=== PATIENT | male | born 1970 | race American Indian/Alaskan Native ===

== ENCOUNTER 2020-08-11 08:13 | Inpatient (IN) | payer OTHER ==
[2020-08-11] MEDS ORDERED: CLOPIDOGREL 300 MG TAB PO ONE (08:20)
[2020-08-11] MEDS ORDERED: ONDANSETRON 4 MG/2 ML INJ IV ONE (08:22)
[2020-08-11] MEDS ORDERED: SODIUM CHLORIDE 0.9% 500 ML 500 ML IV ONE (08:22)
[2020-08-11] MEDS ORDERED: MORPHINE 4 MG/1 ML INJ IV ONE (08:22)
[2020-08-11] MEDS ORDERED: NITROGLYCERIN 0.4 MG TAB SUBL SL PRN (08:22)
--- NOTE | 2020-08-11 08:24 | Emergency Department Report ---
ED Chest Pain HPI - General Chief Complaint: Chest Pain Stated Complaint: my chest hurts PUI?: No Time Seen by Provider: 08/11/20 08:19 Source: patient, EMS (Verbal report received from emergency medical services. EMS documentation not available at time of chart dictation ), RN notes reviewed Mode of arrival: Stretcher Limitations: No Limitations - History of Present Illness Initial Comments: The patient was evaluated in the emergency department for symptoms described in the history of present illness. He/she was evaluated in the context of the global COVID-19 pandemic, which necessitated consideration that the patient m ight be at risk for infection with the virus that causes COVID-19. Institutional protocols and algorithms that pertain to the evaluation of patients at risk for COVID-19 are in a state of rapid change based on information released by regulatory bodies including the CDC and federal and state organizations. These policies and algorithms were followed during the patient's care in the emergency department. Please note that these policies, procedures and recommendations changed on a rapid basis. This is a 49-year-old gentleman. Past medical history includes obesity and diabetes. The patient is brought to the hospital via EMS with a complaint of chest pain. Chest pain is central. There is mild nausea, shortness of breath and diaphoresis. The patient tells me the pain does not radiate anywhere. The patient denies Covid symptomatology. EMS gave the patient aspirin in the field. Prehospital EKG transmitted, nonspecific, though not morphologically consistent with STEMI. ER EKG confirmed a STEMI. EKG was transmitted to our a p mechanic, Dr. Zavaleta, who requested patient be transported to the [facility] for presumed STEMI. Request 600 mg of Plavix. Recommends heparin not necessary. Emergent x-ray of the chest was obtained to exclude widened mediastinum, aortic pathology, pneumothorax. Patient denies DVT and pulmonary embolism risk factors, hematemesis of bright red blood per rectum, and recent phosphodiesterase medication/erectile dysfunction medication utilization. MD Complaint: chest pain -: Gradual, hour(s) Pain Location: substernal Severity: severe Quality: aching Consistency: constant Improves With: nothing Worsens With: nothing re: nausea, dyspnea Treatments Prior to Arrival: aspirin Aspirin use within the Past 7 Days: (0) No - Related Data On Oral Contraceptives: No Home Medications Medication Instructions Recorded Confirmed Last Taken metFORMIN [Glucophage] 500 mg PO BID 08/11/20 08/11/20 08/10/20 15:00 500 mg Allergies Allergy/AdvReac Type Severity Reaction Status Date / Time No Known Allergies Allergy Unverified 08/11/20 08:38 Heart Score - HEART Score History: Highly suspicious EKG: Significant ST-depression (er ekg consistent with septal stemi) Age: 45-65 Risk factors: > 3 risk factors or hx of atherosclerotic disease Troponin: < normal limit HEART Score: 7 - EKG Read Time Time EKG Completed: 08:16 EKG Read Time: 08:16 - Critical Actions Critical Actions: >7 pts:50-65% risk of adverse cardiac event. Early invasive measures ED Review of Systems ROS: Stated complaint: CHESTPAIN Other details as noted in HPI Constitutional: malaise, weakness. denies: fever Eyes: denies: eye discharge ENT: denies: epistaxis Respiratory: shortness of breath. denies: cough Cardiovascular: chest pain Gastrointestinal: denies: hematemesis, melena Genitourinary: denies: frequency Musculoskeletal: denies: myalgia Neurological: weakness Psychiatric: anxiety Hematological/Lymphatic: denies: easy bleeding ED Past Medical Hx - Medications Home Medications: Home Medications Medication Instructions Recorded Confirmed Last Taken Type metFORMIN [Glucophage] 500 mg PO BID 08/11/20 08/11/20 08/10/20 15:00 History 500 mg ED Physical Exam - General Limitations: No Limitations General appearance: alert, in distress, obese - Head Head exam: Present: atraumatic, normocephalic - Eye Eye exam: Present: normal appearance, EOMI. Absent: nystagmus - ENT ENT exam: Present: normal exam, normal orophraynx, mucous membranes moist, normal external ear exam - Neck Neck exam: Present: normal inspection, full ROM. Absent: tenderness, meni ngismus - Respiratory Respiratory exam: Present: normal lung sounds bilaterally. Absent: respiratory distress, wheezes, rales, rhonchi, stridor, decreased breath sounds - Cardiovascular Cardiovascular Exam: Present: regular rate, normal rhythm, normal heart sounds. Absent: bradycardia, tachycardia, irregular rhythm, systolic murmur, diastolic murmur, rubs, gallop - GI/Abdominal GI/Abdominal exam: Present: soft. Absent: distended, tenderness, guarding, rebound, rigid, pulsatile mass - Rectal Rectal exam: Present: deferred - Extremities Exam Extremities exam: Present: normal inspection, full ROM, other (2+ pulses noted in the bilateral upper and lower extremities. There is no palpable cord. n egative Homans sign. Muscular compartments are soft. The pelvis is stable.). Absent: pedal edema, calf tenderness - Back Exam Back exam: Present: normal inspection, full ROM. Absent: tenderness, CVA tenderness (R), CVA tenderness (L), paraspinal tenderness, vertebral tenderness - Neurological Exam Neurological exam: Present: alert, other (No facial droop. Tongue midline. Extraocular movements intact bilaterally. Facial sensation intact to light touch in V1, V2, V3 distribution bilaterally. 5 and a 5 strength in 4 extremities. Sensation intact to light touch in 4 extremities.). Absent: motor sensory deficit - Psychiatric Psychiatric exam: Present: anxious - Skin Skin exam: Present: warm, dry, intact, normal color. Absent: rash ED Course Vital Signs 08/11/20 08/11/20 08/11/20 08:32 08:34 12:00 Temperature 98.2 F 98 F 98.7 F Pulse Rate 96 H 88 Respiratory 18 20 Rate Blood Pressure Blood Pressure 148/96 156/89 [Right] O2 Sat by Pulse 99 97 Oximetry 08/11/20 08/11/20 12:05 12:06 Temperature Pulse Rate 93 H 93 H Respiratory Rate Blood Pressure 156/100 156/100 Blood Pressure [Right] O2 Sat by Pulse Oximetry - Reevaluation(s) Reevaluation #1: 08/11/20 10:19 Differential diagnosis, including but not limited to: Acute coronary syndrome, pericarditis, myocarditis, aortic dissection, pneumothorax Assessment and plan: 49-year-old gentleman, without DVT or pulmonary embolism risk factors, who is low risk by Wells criteria for pulmonary embolism, who is PERC negative, with ER EKG which is morphologically concerning for STEMI. He was given aspirin in the field, cardiology has recommended Plavix load in the ER, and recommended that we do not start heparin in the ER, therefore, I have not ordered heparin. Patient required emergent acquisition of chest x-ray to exclude pneumothorax, mediastinal widening, and signs of aortic pathology. He has equal pulses in the upper and lower extremities, and x-ray of the chest was not suggestive of alternative diagnoses. He went to the cardiac catheterization lab for presumed STEMI, and his laboratory studies did not result until after he was admitted. His laboratory studies have subsequently demonstrated hypokalemia, mild anion gap acidosis, and hyperglycemia. Because the patient is currently recovering from his STEMI, and is currently under the care of the inpatient medical team, I am not able to manage his electrolyte, metabolic and glycemic derangements. I will defer to the inpatient team to further manage these. Dr Hernandez to admit to the ICU She indicated she will follow up on the patient's electrolyte and metabolic derangements. 08/11/20 10:22 08/11/20 10:23 08/11/20 10:25 - Consultations Consultation #1: 08/11/20 10:[address] Ramirez aware and will follow SANDI score - Sandi Score Age > 65: (0) No Aspirin use within the Past 7 Days: (0) No 3 or more CAD Risk Factors: (1) Yes 2 or more Angina events in past 24 hrs: (1) Yes Known CAD with more than 50% Stenosis: (1) Yes Elevated Cardiac Markers: (0) No ST Deviation Greater than 0.5mm: (1) Yes SANDI Score: 4 ED Medical Decision Making - Lab Data Result diagrams: 08/11/20 08:50 08/11/20 14:32 Vital Signs 08/11/20 08/11/20 08:32 08:34 Temperature 98.2 F 98 F Pulse Rate 96 H 88 Respiratory 18 20 Rate Blood Pressure 148/96 156/89 [Right] O2 Sat by Pulse 99 97 Oximetry - EKG Data -: EKG Interpreted by Me EKG shows normal: sinus rhythm - EKG Data When compared to previous EKG there are: previous EKG unavailable Interpretation: acute NC 08/11/20 08:30 EKG interpreted at 8: 16 Sinus rhythm, 98 bpm. First-degree AV block, left axis deviation, borderline left anterior fascicular block, ST elevation myocardial infarction, V2 V3 criteria. - Radiology Data Radiology results: pending, image reviewed interpreted by me: 1 view x-ray of the chest, interpreted by myself, negative for acute findings Critical Care Time: Yes Critical care time in (mins) excluding proc time.: 35 Critical care attestation.: If time is entered above; I have spent that time in minutes in the direct care of this critically ill patient, excluding procedure time. ED Disposition Clinical Impression: Hyperglycemia, Hypokalemia, Metabolic acidosis ST elevation (STEMI) myocardial infarction Qualifiers: Involved coronary artery: LAD coronary artery Qualified Code(s): I21.02 - ST elevation (STEMI) myocardial infarction involving left anterior descending coronary artery Disposition: -09 OP ADMIT IP TO THIS HOSP Condition: Critical
[2020-08-11] MEDS ORDERED: HEPARIN/NS 5000 UNIT/500ML 1,000 ML IR ONE (08:25)
[2020-08-11] MEDS ORDERED: VERAPAMIL 5 MG/2 ML INJ ONE (08:26)
[2020-08-11] MEDS ORDERED: fentaNYL 100 MCG/2 ML INJ ONE (08:26)
[2020-08-11] MEDS ORDERED: LIDOCAINE (2%) 20 MG/1 ML VIAL 20 ML MDV INFILTRATI ONE (08:26)
[2020-08-11] MEDS ORDERED: MIDAZOLAM 2 MG/2 ML INJ ONE (08:26)
[2020-08-11] MEDS ORDERED: SODIUM CHLORIDE 0.9% 500 ML 500 ML ONE (08:28)
[2020-08-11] MEDS ORDERED: NITROGLYCERIN SYRINGE 3 ML ONE (08:28)
[2020-08-11] MEDS ORDERED: ATROPINE 0.1% (1 MG/10 ML) CARDIAC SYRINGE ONE (08:37)
[2020-08-11] MEDS ORDERED: LIDOCAINE PF 100 MG/5 ML (CARDIAC SYRINGE) IV ONE (08:37)
[2020-08-11] MEDS ORDERED: EPINEPHrine 1 MG/10 ML SYRINGE ONE (08:37)
[2020-08-11] MEDS ORDERED: PHENYLEPHRINE/NS 1,000 MCG/10 ML SYRINGE (OR USE) IV ONE (08:38)
--- NOTE | 2020-08-11 08:44 | XRay Report ---
CHEST 1 VIEW INDICATION: chest pain. COMPARISON: None FINDINGS: Support devices: None. Heart: Within normal limits. Lungs/Pleura: No acute air space or interstitial disease. Additional findings: None. IMPRESSION: No acute findings. Signer Name: Ty Salazar Jr, MD Signed: 08/11/2020 8:39 AM Workstation Name: [id number]
[2020-08-11] MEDS: HEPARIN 10,000 UNITS/10 ML VIAL ONE ×2 (08:47→08:49)
[2020-08-11 08:58] LABS: Basophils # (Auto) 0.1 K/mm3 (0.0-0.1); Basophils % (Auto) 0.8 % (0.0-1.8); Eosinophils # (Auto) 0.1 K/mm3 (0.0-0.4); Eosinophils % (Auto) 0.4 % (0.0-4.3); Hematocrit 39.4 % (35.5-45.6); Hemoglobin 13.9 gm/dl (11.8-15.2); Lymphocytes # (Auto) 3.8 K/mm3 (1.2-5.4); Mean Corpuscular HGB Conc 35 % (32-34); Mean Corpuscular Volume 85 fl (84-94); Monocytes # (Auto) 0.4 K/mm3 (0.0-0.8); Monocytes % (Auto) 3.3 % (0.0-7.3); Platelet Count 300 K/mm3 (140-440); Red Blood Count 4.63 M/mm3 (3.65-5.03); Red Cell Distribution Width 13.1 % (13.2-15.2)
[2020-08-11] MEDS ORDERED: ASPIRIN 325 MG TAB ONE (09:06)
[2020-08-11 09:14] LABS: Creatine Kinase MB 3.8 ng/mL (0.0-4.0)
[2020-08-11 09:15] LABS: Alanine Aminotransferase 18 units/L (7-56); Albumin 4.2 g/dL (3.9-5); BUN/Creatinine Ratio 16; Blood Urea Nitrogen 21 mg/dL (9-20); Calcium 9.4 mg/dL (8.4-10.2); Hemolysis Index 5
[2020-08-11 09:16] LABS: INR 1.03 (0.87-1.13); Partial Thromboplastin Time 25.8 Sec. (24.2-36.6)
--- NOTE | 2020-08-11 09:51 | Consultation ---
History of Present Illness Consult date: 08/11/20 Requesting physician: MICHAEL OZUNA Consult reason: chest pain History of present illness: 49-year-old male morbid obesity diabetes having chest pain yesterday midsternal nonradiating nausea and some mild shortness of breath relieved. Came again this morning called ambulance showed acute anterior lateral NC brought emergently to [facility]. Left heart cath revealed left main patent LAD proximal 100% circumflex dominant patent obtuse marginal 1 2 patent L PDA patent large patent RCA small nondominant patent mild dysfunction. Successful PCI of the proximal LAD with a drug-eluting 5.0 x 22 mm stent. Chest pain has markedly improved. Patient states prior to this sedentary. No recent fever chills palpitations or syncope Past History Past Medical History: diabetes, hypertension Past Surgical History: No surgical history Social history: no significant social history Family history: no significant family history Medications and Allergies Allergies Allergy/AdvReac Type Severity Reaction Status Date / Time No Known Allergies Allergy Unverified 08/11/20 08:38 Active Meds: Active Medications Hydrocodone Bitart/Acetaminophen (Hydrocodone/Acetaminophen 5-325 Mg Tab) 1 each PO Q6H PRN PRN Reason: Pain, Moderate (4-6) Aspirin (Aspirin 81 Mg Tab Chew) 81 mg PO QDAY ARLEEN Atorvastatin Calcium (Atorvastatin 40 Mg Tab) 80 mg PO QHS ARLEEN Clopidogrel Bisulfate (Clopidogrel 75 Mg Tab) 75 mg PO QDAY ARLEEN Sodium Chloride (Nacl 0.9% 1000 Ml) 1,000 mls @ 75 mls/hr IV DIRECT ARLEEN Stop: 08/11/20 23:19 Lisinopril (Lisinopril 5 Mg Tab) 2.5 mg PO QDAY ARLEEN Metoprolol Tartrate (Metoprolol Tartrate 50 Mg Tab) 50 mg PO BID ARLEEN Nitroglycerin (Nitroglycerin 0.4 Mg Tab Subl) 0.4 mg SL .Q5MIN PRN PRN Reason: Chest Pain Review of Systems All systems: negative (As per the HPI) Physical Examination Vital Signs Temp Pulse Resp BP Pulse Ox 98.2 F 96 H 18 148/96 99 08/11/20 08:32 08/11/20 08:32 08/11/20 08:32 08/11/20 08:32 08/11/20 08:32 General appearance: no acute distress, well-nourished HEENT: Positive: PERRL, Mucus Membranes Moist Neck: Positive: neck supple, trachea midline Cardiac: Positive: Reg Rate and Rhythm, S1/S2, S3, Audible Murmur Lungs: Positive: clear to auscultation, Normal Breath Sounds Neuro: Positive: Grossly Intact Abdomen: Positive: Soft, Active Bowel Sounds. Negative: Tender, Distended Male genitourinary: Positive: normal Skin: Positive: Clear Incision: Cardiac Cath Site (No hematoma) Musculoskeletal: No Pain, Normal Range of Motion Extremities: Present: normal. Absent: edema Results 08/11/20 08:50 08/11/20 08:50 Cardiac Enzymes 08/11/20 Range/Units 08:50 AST 14 (5-40) units/L CK-MB (CK-2) 3.8 (0.0-4.0) ng/mL Coagulation 08/11/20 Range/Units 08:50 PT 13.4 (12.2-14.9) Sec. INR 1.03 (0.87-1.13) APTT 25.8 (24.2-36.6) Sec. CBC 08/11/20 Range/Units 08:50 WBC 12.4 H (4.5-11.0) K/mm3 RBC 4.63 (3.65-5.03) M/mm3 Hgb 13.9 (11.8-15.2) gm/dl Hct 39.4 (35.5-45.6) % Plt Count 300 (140-440) K/mm3 Lymph # (Auto) 3.8 (1.2-5.4) K/mm3 [place]vier # (Auto) 0.4 (0.0-0.8) K/mm3 Eos # (Auto) 0.1 (0.0-0.4) K/mm3 Baso # (Auto) 0.1 (0.0-0.1) K/mm3 Comprehensive Metabolic Panel 08/11/20 Range/Units 08:50 Sodium 131 L (137-145) mmol/L Potassium 3.4 L (3.6-5.0) mmol/L Chloride 95.0 L (98-107) mmol/L Carbon Dioxide 17 L (22-30) mmol/L BUN 21 H (9-20) mg/dL Creatinine 1.3 (0.8-1.3) mg/dL Glucose 530 H* (75-100) mg/dL Calcium 9.4 (8.4-10.2) mg/dL AST 14 (5-40) units/L ALT 18 (7-56) units/L Alkaline Phosphatase 85 (35-129) units/L Total Protein 8.0 (6.3-8.2) g/dL Albumin 4.2 (3.9-5) g/dL - Imaging and Cardiology Cardiac cath: report reviewed (08/11/20 Left heart cath revealed left main patent LAD proximal 100% circumflex dominant patent obtuse marginal 1 2 patent L PDA patent large patent RCA small nondominant patent mild dysfunction. Successful PCI of the proximal LAD with a drug-eluting 5.0 x 22 mm stent.) EKG interpretations - Telemetry EKG Rhythm: Sinus Rhythm (Sinus rhythm acute anterior lateral NC) Assessment and Plan 49-year-old male with acute anterolateral NC successful PCI of the proximal LAD patient will be on aspirin Plavix high-dose statin low-dose LUCAS and beta- ezequiel. Post PCI care discussed with patient patient's family. Echo postprocedure. Post radial care - Patient Problems (1) Acute diastolic (congestive) heart failure Current Visit: Yes Status: Acute (2) Hypertension Current Visit: Yes Status: Chronic Qualifiers: Hypertension type: essential hypertension Qualified Code(s): I10 - Essential (primary) hypertension (3) Diabetes mellitus Current Visit: Yes Status: Chronic Qualifiers: Diabetes mellitus type: type 2 Diabetes mellitus complication status: with circulatory complication Diabetes mellitus complication detail: with other circulatory complications (4) Hyperlipidemia Current Visit: Yes Status: Chronic Qualifiers: Hyperlipidemia type: moderate mixed hyperlipidemia not requiring statin therapy Qualified Code(s): E78.2 - Mixed hyperlipidemia (5) Morbid obesity with BMI of 40.0-44.9, adult Current Visit: Yes Status: Chronic (6) ST elevation (STEMI) myocardial infarction Current Visit: Yes Status: Acute Qualifiers: Involved coronary artery: LAD coronary artery Qualified Code(s): I21.02 - ST elevation (STEMI) myocardial infarction involving left anterior descending coronary artery
[2020-08-11] MEDS ORDERED: LISINOPRIL 5 MG TAB PO SCH (10:00)
[2020-08-11] MEDS ORDERED: SODIUM CHLORIDE 0.9% 1000 ML 1,000 ML IV SCH ×2 (10:00→11:00)
[2020-08-11] MEDS ORDERED: HYDROcodone/ACETAMINOPHEN 5-325 MG TAB PO PRN (10:00)
[2020-08-11] MEDS ORDERED: DEXTROSE 50% IN WATER (25GM) 50 ML SYRINGE IV PRN (10:07)
--- NOTE | 2020-08-11 10:27 | History and Physical Report ---
History of Present Illness Date of examination: 08/11/20 Date of admission: 08/11/20 08:27 Chief complaint: Chest pain History of present illness: This is a 49-year-old male with a history of obesity diabetes on oral hypoglycemic Metformin presented to the ER with complaints of having chest pain since yesterday. Patient described his chest pain midsternal nonradiating nausea and associated with some mild shortness of breath. Patient was brought to the ER by ambulance and showed acute anterior lateral MO on EKG. Code STEMI initiated and patient was taken emergently to [facility]. Left heart cath revealed left main patent LAD proximal 100% circumflex dominant patent obtuse marginal 1 2 patent L PDA patent large patent RCA small nondominant patent mild dysf unction. Successful PCI of the proximal LAD with a drug-eluting 5.0 x 22 mm stent. Chest pain has markedly improved following cardiac cath. Serum chemistry also significant for blood glucose greater than 500. Patient now admitted to intensive care unit for further evaluation and management. Review of System: Constitutional: no fever, no chills, no weight loss Ears, eyes, nose, mouth and throat: no nasal congestion, no nasal discharge, no sinus pressure, no vision change, no red eye. Neck: No neck pain or rigidity. Cardiovascular: +chest pain, no orthopnea, no palpitations, no leg swelling Respiratory: No shortness of breath, no cough, no congestion, no wheezing Gastrointestinal: no abdominal pain, no nausea, no vomiting Genitourinary : no dysuria, no hematuria Musculoskeletal: no joint swelling or muscle ache Integumentary: no rash, no pruritis Neurological: no parathesias, no numbness, no tingling Endocrine: no cold or heat intolerance, no polyuria or polydipsia Hematologic/Lymphatic: no easy bruising, no easy bleeding, no gland swelling Allergic/Immunologic: no urticaria, no angioedema. Past History Past Medical History: diabetes, hypertension Past Surgical History: No surgical history Social history: no significant social history Family history: no significant family history Medications and Allergies Allergies Allergy/AdvReac Type Severity Reaction Status Date / Time No Known Allergies Allergy Unverified 08/11/20 08:38 Home Medications Medication Instructions Recorded Confirmed Last Taken Type metFORMIN [Glucophage] 500 mg PO BID 08/11/20 08/11/20 08/10/20 15:00 History 500 mg Active Meds: Active Medications Hydrocodone Bitart/Acetaminophen (Hydrocodone/Acetaminophen 5-325 Mg Tab) 1 each PO Q6H PRN PRN Reason: Pain, Moderate (4-6) Aspirin (Aspirin 81 Mg Tab Chew) 81 mg PO QDAY ARLEEN Atorvastatin Calcium (Atorvastatin 40 Mg Tab) 80 mg PO QHS ARLEEN Clopidogrel Bisulfate (Clopidogrel 75 Mg Tab) 75 mg PO QDAY ARLEEN Dextrose (Dextrose 50% In Water (25gm) 50 Ml Syringe) 50 ml IV Q30MIN PRN; Protocol PRN Reason: Hypoglycemia Sodium Chloride (Nacl 0.9% 1000 Ml) 1,000 mls @ 75 mls/hr IV DIRECT ARLEEN Stop: 08/11/20 23:19 Sodium Chloride (Nacl 0.9% 1000 Ml) 1,000 mls @ 100 mls/hr IV DIRECT ARLEEN Insulin Human Lispro (Insulin Lispro 100 Unit/Ml) 0 unit SUB-Q ACHS ARLEEN; Protocol Insulin Human NPH (Insulin Nph, Human 100 Unit/1 Ml) 15 unit SUB-Q BIDDIAB ARLEEN Lisinopril (Lisinopril 5 Mg Tab) 2.5 mg PO QDAY ARLEEN Metoprolol Tartrate (Metoprolol Tartrate 50 Mg Tab) 50 mg PO BID ARLEEN Nitroglycerin (Nitroglycerin 0.4 Mg Tab Subl) 0.4 mg SL .Q5MIN PRN PRN Reason: Chest Pain Exam - Physical Exam Narrative exam: GENERAL: well-developed and obese -[place] male lying on bed appeared to be in no discomfort. HEENT: Normocephalic. Atraumatic. No conjunctival congestion or icterus. Patient has moist mucous membranes. NECK: Supple. Trachea midline. CHEST/LUNGS: Clear to auscultated bilaterally, breathing nonlabored. No wheezes crackles or rhonchi. HEART/CARDIOVASCULAR: Regular in rate and rhythm. S1 and S2 positive. ABDOMEN: Abdomen is soft, nontender. Patient has normal bowel sounds. SKIN: There is no rash. Warm and dry. NEURO: No focal motor deficit. Follows command. MUSCULOSKELETAL: No joint effusion or tenderness. EXTRIMITY: No edema, no cyanosis or clubbing. PSYCH: Cooperative. - Constitutional Vitals: Temp Pulse Resp BP Pulse Ox 98 F 88 20 156/89 97 08/11/20 08:34 08/11/20 08:34 08/11/20 08:34 08/11/20 08:34 08/11/20 08:34 HEART Score - HEART Score EKG: Significant ST-depression (er ekg consistent with septal stemi) Age: 45-65 Risk factors: > 3 risk factors or hx of atherosclerotic disease Troponin: Troponin T < 0.010 ng/mL (0.00-0.029) 08/11/20 08:50 Troponin: < normal limit - Critical Actions Critical Actions: >7 pts:50-65% risk of adverse cardiac event. Early invasive measures Results - Labs CBC & Chem 7: 08/11/20 08:50 08/11/20 14:32 Labs: Abnormal lab results 08/11/20 08/11/20 Range/Units 08:50 08:50 WBC 12.4 H (4.5-11.0) K/mm3 MCHC 35 H (32-34) % RDW 13.1 L (13.2-15.2) % Seg Neutrophils # 8.0 H (1.8-7.7) K/mm3 Sodium 131 L (137-145) mmol/L Potassium 3.4 L (3.6-5.0) mmol/L Chloride 95.0 L (98-107) mmol/L Carbon Dioxide 17 L (22-30) mmol/L BUN 21 H (9-20) mg/dL Glucose 530 H* (75-100) mg/dL - Imaging and Cardiology Chest x-ray: report reviewed (No acute findings) Assessment and Plan Acute anterolateral MO - s/p Successful PCI of the proximal LAD with a drug-eluting 5.0 x 22 mm stent -plACED on aspirin Plavix high-dose statin low-dose LUCAS and beta-ezequiel -Post-cath echo ordered Hypertension, continue low-dose LUCAS and beta-ezequiel Diabetes mellitus type 2 with hyperglycemia and uncontrolled -Blood glucose noted to be greater than 500 -Initiated on long-acting insulin along with sliding scale, gentle IV fluid hydration -Monitor blood glucose and adjust insulin doses as needed -Ordered A1c SIRS, patient presented with leukocytosis tachycardia and tachypnea -Likely due to acute MO and uncontrolled diabetes -Continue to monitor clinically off antibiotics Mild hyponatremia due to elevated blood glucose, gentle IV fluid hydration, follow BMP Hyperlipidemia, continue on statin Obesity, diet and exercise recommendation when clinically stable as outpatient as appropriate DVT prophylaxis, Lovenox
[2020-08-11] MEDS ORDERED: INSULIN NPH, HUMAN 100 UNIT/1 ML SUB-Q SCH (11:00)
--- NOTE | 2020-08-11 11:39 | Cardiac Catherization Report ---
PROCEDURES: Left heart catheterization with percutaneous coronary intervention and IVUS done 08/11/2020. CLINICAL INFORMATION: This is a 49-year-old -[place] gentleman with morbid obesity, diabetes, who presents with chest pain. EKG shows acute anterolateral CA. He is brought emergently to the supervisor labor gang under STEMI protocol. The patient's moderate sedation started at 8:45, finished at 9:15, 30 minutes of moderate sedation. Procedure was done via the right radial artery, sterile technique, local anesthesia, 6-[place]ib[place] radial sheath inserted. LV gram done in [facility] shows mild LV dysfunction, EF 40%, anterior wall hypokinesis. LVEDP 37 mmHg, LV is 140. Aortic is 140/97. No gradient across the aortic valve on pullback. RCA was engaged with JR4, is a medium caliber vessel, nondominant, patent. Left system engaged with an EBU 3.5 catheter, left main is large and patent, bifurcates into large LAD, proximal 100%. Ramus small patent, circumflex large, dominant. OM1 and OM2 large caliber vessel, patent. LPDA, large caliber vessel, patent. Percutaneous coronary intervention of the LAD engaged with an EBU 3.5 guiding catheter crossed with a run-through wire. Balloon with 2.5 x 12 times 4 inflations restored SANDI 3 flow. IVUS showed large distal reference proximal 5.0. Stented in the proximal LAD with a drug-eluting Resolute [place], 5.0 x 22 inflated at 12 atmospheres, then postdilated with a 5.0 x 12 noncompliant balloon. Excellent angiographic result, reduced stenosis from 100% down to 0. Good stent apposition and expansion noted. Diagonal 1 is a large caliber vessel. Diagonal 1 is a smooth 30% lesion in the LAD and the rest of LAD is a large wraparound LAD that is patent. Removed coronary wire, multiple angiograms, SANDI 3 flow, no dissection or perforation embolization noted. A 6-[place]ib[place] guiding catheter taken over guidewire, 6-[place]ib[place] radial sheath was discontinued. Radial band applied. No hematoma, no bleeding. SUMMARY: Successful PCI of the proximal LAD with a drug-eluting Resolute [place] 5.0 x 22. IVUS directed and post-dilated with a 5.0 x 12 times 3 inflations. The rest of the LAD after the stent diagonal 1 is a large caliber vessel patent and then the mid LAD has a smooth 30%. Rest of the wraparound LAD is a large caliber vessel, patent. Circumflex is a large dominant vessel, patent. OM1 and OM2 large caliber and patent. LPDA, a large caliber, patent. RCA is a medium caliber nondominant, patent. Mild LV dysfunction. Post-PCI care. Discussed this with the patient and the patient's family. Aspirin, Plavix, high low-dose statin and diabetes control. [facility]# [id number] MARIE/MONSE CASH
[2020-08-11] MEDS: METOPROLOL TARTRATE 50 MG TAB PO SCH ×2 (12:06→21:54)
[2020-08-11] MEDS: INSULIN LISPRO 100 UNIT/ML SUB-Q SCH ×3 (12:08→22:15)
[2020-08-11] MEDS ORDERED: ONDANSETRON 4 MG/2 ML INJ IV PRN (13:30)
[2020-08-11 15:16] LABS: Creatine Kinase MB 176.8 ng/mL (0.0-4.0)
[2020-08-11 15:17] LABS: BUN/Creatinine Ratio 15; Blood Urea Nitrogen 20 mg/dL (9-20); Calcium 9.7 mg/dL (8.4-10.2); Hemolysis Index 8
[2020-08-11] MEDS: FAMOTIDINE 20 MG TAB PO SCH (15:33)
--- NOTE | 2020-08-11 16:51 | Consultation ---
History of Present Illness Consult date: 08/11/20 Requesting physician: HIREN FERRARA Reason for consult: other (STEMI) History of present illness: PULMONARY/CCM CONSULT NOTE (Full dictation # [id number]) Please see dictated notes for full details Past History Past Medical History: diabetes, hypertension Past Surgical History: No surgical history Social history: no significant social history Family history: no significant family history Medications and Allergies Allergies Allergy/AdvReac Type Severity Reaction Status Date / Time No Known Allergies Allergy Unverified 08/11/20 08:38 Home Medications Medication Instructions Recorded Confirmed Last Taken Type metFORMIN [Glucophage] 500 mg PO BID 08/11/20 08/11/20 08/10/20 15:00 History 500 mg Active Meds: Active Medications Hydrocodone Bitart/Acetaminophen (Hydrocodone/Acetaminophen 5-325 Mg Tab) 1 each PO Q6H PRN PRN Reason: Pain, Moderate (4-6) Aspirin (Aspirin 81 Mg Tab Chew) 81 mg PO QDAY [facility] Atorvastatin Calcium (Atorvastatin 40 Mg Tab) 80 mg PO QHS [facility] Clopidogrel Bisulfate (Clopidogrel 75 Mg Tab) 75 mg PO QDAY [facility] Dextrose (Dextrose 50% In Water (25gm) 50 Ml Syringe) 50 ml IV Q30MIN PRN; Protocol PRN Reason: Hypoglycemia Famotidine (Famotidine 20 Mg Tab) 20 mg PO QDAY [facility] Last Admin: 08/11/20 15:33 Dose: 20 mg Documented by: Sodium Chloride (Nacl 0.9% 1000 Ml) 1,000 mls @ 75 mls/hr IV DIRECT ARLEEN Stop: 08/11/20 23:19 Sodium Chloride (Nacl 0.9% 1000 Ml) 1,000 mls @ 100 mls/hr IV DIRECT ARLEEN Insulin Human Lispro (Insulin Lispro 100 Unit/Ml) 0 unit SUB-Q ACHS [facility]; Protocol Last Admin: 08/11/20 12:08 Dose: 8 unit Documented by: Insulin Human NPH (Insulin Nph, Human 100 Unit/1 Ml) 20 unit SUB-Q BIDDIAB [facility] Lisinopril (Lisinopril 5 Mg Tab) 2.5 mg PO QDAY [facility] Last Admin: 08/11/20 12:05 Dose: 2.5 mg Documented by: Metoprolol Tartrate (Metoprolol Tartrate 50 Mg Tab) 50 mg PO BID [facility] Last Admin: 08/11/20 12:06 Dose: 50 mg Documented by: Nitroglycerin (Nitroglycerin 0.4 Mg Tab Subl) 0.4 mg SL .Q5MIN PRN PRN Reason: Chest Pain Ondansetron HCl (Ondansetron 4 Mg/2 Ml Inj) 4 mg IV Q4H PRN PRN Reason: Nausea And Vomiting Physical Examination Vital signs: Vital Signs Temp Pulse Resp BP Pulse Ox 98.2 F 96 H 18 148/96 99 08/11/20 08:32 08/11/20 08:32 08/11/20 08:32 08/11/20 08:32 08/11/20 08:32 Results - Laboratory Findings CBC and BMP: 08/12/20 07:46 08/12/20 07:46 PT/INR, D-dimer PT 13.4 Sec. (12.2-14.9) 08/11/20 08:50 INR 1.03 (0.87-1.13) 08/11/20 08:50 Abnormal lab findings: Abnormal Labs 08/11/20 08/11/20 08/11/20 08:50 08:50 11:10 WBC 12.4 H MCHC 35 H RDW 13.1 L Seg Neutrophils # 8.0 H Sodium 131 L Potassium 3.4 L Chloride 95.0 L Carbon Dioxide 17 L BUN 21 H Glucose 530 H* POC Glucose 460 H Total Creatine Kinase CK-MB (CK-2) CK-MB (CK-2) Rel Index Troponin T 08/11/20 08/11/20 14:32 14:32 WBC MCHC RDW Seg Neutrophils # Sodium 135 L Potassium Chloride Carbon Dioxide 21 L BUN Glucose 376 H POC Glucose Total Creatine Kinase 1495 H CK-MB (CK-2) 176.8 H CK-MB (CK-2) Rel Index 11.8 H Troponin T 1.260 H* D
[2020-08-11 17:20] LABS: Chol/HDL Ratio 5.86 %
[2020-08-11] MEDS: INSULIN NPH, HUMAN 100 UNIT/1 ML SUB-Q SCH (17:35)
[2020-08-11] MEDS ORDERED: ALUM-MAG HYDROXIDE-SIMETHICONE 200-200-20MG/5ML ORAL LIQD 30 ML PO PRN (17:48)
[2020-08-12 08:08] LABS: Basophils # (Auto) 0.1 K/mm3 (0.0-0.1); Basophils % (Auto) 0.8 % (0.0-1.8); Eosinophils # (Auto) 0.1 K/mm3 (0.0-0.4); Hematocrit 41.9 % (35.5-45.6); Hemoglobin 13.9 gm/dl (11.8-15.2); Lymphocytes # (Auto) 3.2 K/mm3 (1.2-5.4); Lymphocytes % (Auto) 32.8 % (13.4-35.0); Mean Corpuscular HGB Conc 33 % (32-34); Mean Corpuscular Volume 88 fl (84-94); Monocytes # (Auto) 0.6 K/mm3 (0.0-0.8); Monocytes % (Auto) 6.1 % (0.0-7.3); Platelet Count 313 K/mm3 (140-440); Red Blood Count 4.77 M/mm3 (3.65-5.03); Red Cell Distribution Width 13.5 % (13.2-15.2)
[2020-08-12] MEDS: INSULIN NPH, HUMAN 100 UNIT/1 ML SUB-Q SCH ×2 (08:13→16:50)
[2020-08-12] MEDS: INSULIN LISPRO 100 UNIT/ML SUB-Q SCH ×4 (08:14→22:23)
[2020-08-12 08:27] LABS: BUN/Creatinine Ratio 13; Blood Urea Nitrogen 14 mg/dL (9-20); Hemolysis Index 28
--- NOTE | 2020-08-12 08:59 | Progress Note ---
Assessment and Plan chest pain free, ambulate pt, transfer to telemetry and ambulate, start aldactone and increase lisinopril 5mg once a day and cont lopressor and asa and statin and plavix. - Patient Problems (1) Acute diastolic (congestive) heart failure Current Visit: Yes Status: Acute (2) Hypertension Current Visit: Yes Status: Chronic Qualifiers: Hypertension type: essential hypertension Qualified Code(s): I10 - Essential (primary) hypertension (3) Diabetes mellitus Current Visit: Yes Status: Chronic Qualifiers: Diabetes mellitus type: type 2 Diabetes mellitus complication status: with circulatory complication Diabetes mellitus complication detail: with other circulatory complications (4) Hyperlipidemia Current Visit: Yes Status: Chronic Qualifiers: Hyperlipidemia type: moderate mixed hyperlipidemia not requiring statin therapy Qualified Code(s): E78.2 - Mixed hyperlipidemia (5) Morbid obesity with BMI of 40.0-44.9, adult Current Visit: Yes Status: Chronic (6) ST elevation (STEMI) myocardial infarction Current Visit: Yes Status: Acute Qualifiers: Involved coronary artery: LAD coronary artery Qualified Code(s): I21.02 - ST elevation (STEMI) myocardial infarction involving left anterior descending coronary artery (7) Acute systolic (congestive) heart failure Current Visit: Yes Status: Acute Subjective Date of service: 08/12/20 Principal diagnosis: acute mi Interval history: chest pain free this am Objective Vital Signs Temp Pulse Pulse Resp BP Pulse Ox 08/12/20 08:45 77 18 121/83 97 08/12/20 08:31 75 18 121/83 95 08/12/20 08:15 79 16 121/83 98 08/12/20 08:00 97.6 F 78 9 L 121/83 100 08/12/20 07:45 82 13 130/83 100 08/12/20 07:31 82 13 130/83 99 08/12/20 07:15 77 9 L 100 08/12/20 07:00 74 16 132/81 100 08/12/20 06:46 79 18 132/81 98 08/12/20 06:30 76 17 132/81 100 08/12/20 06:16 78 11 L 132/81 100 08/12/20 06:00 74 16 132/81 86 08/12/20 05:46 75 15 105/64 98 08/12/20 05:30 73 15 105/64 99 08/12/20 05:16 73 15 105/64 98 08/12/20 05:00 73 15 105/64 100 08/12/20 04:46 71 14 124/76 100 08/12/20 04:30 72 14 124/76 97 08/12/20 04:16 73 16 124/76 88 08/12/20 04:00 70 73 15 124/76 100 08/12/20 03:46 71 16 118/78 100 08/12/20 03:30 70 16 118/78 100 08/12/20 03:24 98.8 F 08/12/20 03:16 71 18 118/78 100 08/12/20 03:00 73 17 118/78 97 08/12/20 02:46 73 16 98/61 100 08/12/20 02:30 75 21 98/61 100 08/12/20 02:16 72 17 98/61 100 08/12/20 02:00 71 17 98/61 99 08/12/20 01:46 71 17 116/74 100 08/12/20 01:30 72 17 116/74 98 08/12/20 01:16 70 16 116/74 100 08/12/20 01:00 68 12 116/74 100 08/12/20 00:46 70 17 113/68 100 08/12/20 00:30 78 19 113/68 98 08/12/20 00:16 71 16 113/68 08/12/20 00:00 98.9 F 70 71 15 113/68 98 08/11/20 23:46 73 12 140/96 98 08/11/20 23:30 73 15 140/96 95 08/11/20 23:16 71 14 122/79 08/11/20 23:00 80 15 122/79 92 08/11/20 22:45 80 9 L 140/96 08/11/20 22:30 86 11 L 140/96 08/11/20 22:16 86 9 L 140/96 08/11/20 22:00 84 16 140/96 88 08/11/20 21:54 84 146/93 08/11/20 21:46 84 13 146/93 100 08/11/20 21:30 81 9 L 143/96 100 08/11/20 21:16 80 14 134/91 08/11/20 21:00 85 8 L 134/91 91 08/11/20 20:46 82 11 L 137/89 08/11/20 20:30 82 17 135/93 99 08/11/20 20:16 81 16 131/89 100 08/11/20 20:00 98.8 F 79 84 14 131/89 100 08/11/20 19:46 80 15 132/88 99 08/11/20 19:30 84 17 122/77 99 08/11/20 19:16 80 18 112/74 99 08/11/20 19:00 81 16 112/74 98 08/11/20 18:46 83 18 119/78 98 08/11/20 18:37 13 08/11/20 18:30 81 19 130/83 99 08/11/20 18:16 80 18 134/86 99 08/11/20 18:00 79 14 134/86 08/11/20 17:46 85 9 L 143/95 99 08/11/20 17:41 82 143/95 08/11/20 17:30 80 18 141/95 100 08/11/20 17:16 79 19 133/92 100 08/11/20 17:00 78 18 133/92 08/11/20 16:46 79 15 140/93 08/11/20 16:30 79 20 138/87 08/11/20 16:16 80 17 135/91 08/11/20 16:00 77 16 135/91 100 08/11/20 15:46 83 18 128/89 08/11/20 15:30 77 17 114/75 08/11/20 15:16 76 17 117/70 99 08/11/20 15:00 76 18 117/70 99 08/11/20 14:46 76 18 131/94 97 08/11/20 14:30 84 27 H 131/94 99 08/11/20 14:16 81 11 L 122/75 08/11/20 14:00 78 21 122/75 97 08/11/20 13:46 78 21 148/96 08/11/20 13:30 79 11 L 148/96 08/11/20 13:16 80 11 L 155/109 08/11/20 13:00 90 11 L 148/96 97 08/11/20 12:46 86 18 160/106 08/11/20 12:30 97 H 14 155/101 100 08/11/20 12:16 93 H 9 L 156/100 100 08/11/20 12:06 93 H 156/100 08/11/20 12:05 93 H 156/100 08/11/20 12:02 12 96 08/11/20 12:00 98.7 F 90 12 146/83 98 08/11/20 11:46 90 8 L 146/83 99 08/11/20 11:30 98.7 F 96 H 13 144/90 99 08/11/20 11:16 94 H 12 154/97 98 08/11/20 11:00 94 H 11 L 154/97 99 08/11/20 10:46 94 H 10 L 146/98 100 08/11/20 10:30 93 H 12 145/89 95 08/11/20 10:16 91 H 11 L 145/89 94 08/11/20 10:07 96 - Physical Examination General: No Apparent Distress HEENT: Positive: PERRL, Mucus Membranes Moist Neck: Positive: neck supple, trachea midline Cardiac: Positive: Reg Rate and Rhythm Lungs: Positive: clear to auscultation Neuro: Positive: Grossly Intact Abdomen: Positive: Soft, Active Bowel Sounds. Negative: Tender, Distended Skin: Positive: Clear Incision: Cardiac Cath Site (No hematoma) Musculoskeletal: No Pain, Normal Range of Motion Extremities: Present: normal. Absent: edema - Labs and Meds Cardiac Enzymes 08/11/20 08/11/20 Range/Units 08:50 14:32 AST 14 (5-40) units/L CK-MB (CK-2) 3.8 176.8 H (0.0-4.0) ng/mL Coagulation 08/11/20 Range/Units 08:50 PT 13.4 (12.2-14.9) Sec. INR 1.03 (0.87-1.13) APTT 25.8 (24.2-36.6) Sec. Lipids 08/11/20 Range/Units 14:32 Triglycerides 271 H (2-149) mg/dL Cholesterol 211 H (50-199) mg/dL HDL Cholesterol 36 L (40-59) mg/dL Cholesterol/HDL Ratio 5.86 % CBC 08/11/20 08/12/20 Range/Units 08:50 07:46 WBC 12.4 H 9.6 (4.5-11.0) K/mm3 RBC 4.63 4.77 (3.65-5.03) M/mm3 Hgb 13.9 13.9 (11.8-15.2) gm/dl Hct 39.4 41.9 (35.5-45.6) % Plt Count 300 313 (140-440) K/mm3 Lymph # (Auto) 3.8 3.2 (1.2-5.4) K/mm3 [place] # (Auto) 0.4 0.6 (0.0-0.8) K/mm3 Eos # (Auto) 0.1 0.1 (0.0-0.4) K/mm3 Baso # (Auto) 0.1 0.1 (0.0-0.1) K/mm3 Comprehensive Metabolic Panel 08/11/20 08/11/20 08/12/20 Range/Units 08:50 14:32 07:46 Sodium 131 L 135 L 138 (137-145) mmol/L Potassium 3.4 L 4.8 D 3.8 D (3.6-5.0) mmol/L Chloride 95.0 L 98.9 102.7 (98-107) mmol/L Carbon Dioxide 17 L 21 L 23 (22-30) mmol/L BUN 21 H 20 14 (9-20) mg/dL Creatinine 1.3 1.3 1.1 (0.8-1.3) mg/dL Glucose 530 H* 376 H 214 H (75-100) mg/dL Calcium 9.4 9.7 9.0 (8.4-10.2) mg/dL AST 14 (5-40) units/L ALT 18 (7-56) units/L Alkaline Phosphatase 85 (35-129) units/L Total Protein 8.0 (6.3-8.2) g/dL Albumin 4.2 (3.9-5) g/dL - Imaging and Cardiology Echo: report reviewed (ef 20% anterior wall and septal hypokensis trace ) Cardiac cath: report reviewed (08/11/20 Left heart cath revealed left main patent LAD proximal 100% circumflex dominant patent obtuse marginal 1 2 patent L PDA patent large patent RCA small nondominant patent mild dysfunction. Successful PCI of the proximal LAD with a drug-eluting 5.0 x 22 mm stent.) - Telemetry EKG Rhythm: Sinus Rhythm
[2020-08-12] MEDS: ASPIRIN 81 MG TAB CHEW PO SCH (09:21)
[2020-08-12] MEDS: METOPROLOL TARTRATE 50 MG TAB PO SCH ×2 (09:22→22:23)
[2020-08-12] MEDS: LISINOPRIL 5 MG TAB PO SCH ×2 (09:22→10:00)
[2020-08-12] MEDS: FAMOTIDINE 20 MG TAB PO SCH (09:23)
[2020-08-12] MEDS: SPIRONOLACTONE 25 MG TAB PO SCH (09:23)
[2020-08-12] MEDS: CLOPIDOGREL 75 MG TAB PO SCH (09:23)
[2020-08-12] MEDS ORDERED: metFORMIN 500 MG TAB PO SCH (10:00)
--- NOTE | 2020-08-12 14:18 | Progress Note ---
Assessment and Plan Acute ST elevation myocardial infarction. Acute hypoxemic respiratory failure. Morbid obesity. Metabolic acidosis at presentation. Leukocytosis at presentation. Hypokalemia. Hyponatremia. History of hypertension. - continue supplemental oxygen as needed to keep O2 sat's > 90% - prn bronchodilators with pulmonary hygiene per RT - continue anti-platelet therapy' - continue lipid therapy with atorvastatin - weight loss counseled - outpatient sleep clinic evaluation appropriate re: JONNA - PT/OT as tolerated - mobility protocols for pressure ulcer prophylaxis - continue accuchecks with glycemic control per SSI for target BG < 180 mg/dl - GI & VTE prophylaxis - Flu & pneumovax addressed per protocol - continue other care per attending / other consultants ... re-evaluate in am & prn Subjective Date of service: 08/12/20 Principal diagnosis: STEMI; Acute hypoxemic respiratory failure; Morbid obesity Interval history: Patient is seen today for: Acute ST elevation myocardial infarction; Acute hypoxemic respiratory failure; Morbid obesity; Metabolic acidosis; Leukocytosis Seen and examined at bedside; 24hour events reviewed; nursing and respiratory care staff consulted; no adverse overnight events reported to me; resting peacefully in bed; feeling better today; denies acute chest pains or palpitations; afebrile Objective Vital Signs - 12hr 08/12/20 08/12/20 08/12/20 02:16 02:30 02:46 Temperature Pulse Rate 72 75 73 Pulse Rate [ From Monitor] Respiratory 17 21 16 Rate Blood Pressure 98/61 98/61 98/61 O2 Sat by Pulse 100 100 100 Oximetry 08/12/20 08/12/20 08/12/20 03:00 03:16 03:24 Temperature 98.8 F Pulse Rate 73 71 Pulse Rate [ From Monitor] Respiratory 17 18 Rate Blood Pressure 118/78 118/78 O2 Sat by Pulse 97 100 Oximetry 08/12/20 08/12/20 08/12/20 03:30 03:46 04:00 Temperature Pulse Rate 70 71 70 Pulse Rate [ 73 From Monitor] Respiratory 16 16 15 Rate Blood Pressure 118/78 118/78 124/76 O2 Sat by Pulse 100 100 100 Oximetry 08/12/20 08/12/20 08/12/20 04:16 04:30 04:46 Temperature Pulse Rate 73 72 71 Pulse Rate [ From Monitor] Respiratory 16 14 14 Rate Blood Pressure 124/76 124/76 124/76 O2 Sat by Pulse 88 97 100 Oximetry 08/12/20 08/12/20 08/12/20 05:00 05:16 05:30 Temperature Pulse Rate 73 73 73 Pulse Rate [ From Monitor] Respiratory 15 15 15 Rate Blood Pressure 105/64 105/64 105/64 O2 Sat by Pulse 100 98 99 Oximetry 08/12/20 08/12/20 08/12/20 05:46 06:00 06:16 Temperature Pulse Rate 75 74 78 Pulse Rate [ From Monitor] Respiratory 15 16 11 L Rate Blood Pressure 105/64 132/81 132/81 O2 Sat by Pulse 98 86 100 Oximetry 08/12/20 08/12/20 08/12/20 06:30 06:46 07:00 Temperature Pulse Rate 76 79 74 Pulse Rate [ From Monitor] Respiratory 17 18 16 Rate Blood Pressure 132/81 132/81 132/81 O2 Sat by Pulse 100 98 100 Oximetry 08/12/20 08/12/20 08/12/20 07:15 07:31 07:45 Temperature Pulse Rate 77 82 82 Pulse Rate [ From Monitor] Respiratory 9 L 13 13 Rate Blood Pressure 130/83 130/83 O2 Sat by Pulse 100 99 100 Oximetry 08/12/20 08/12/20 08/12/20 08:00 08:15 08:31 Temperature 97.6 F Pulse Rate 72 79 75 Pulse Rate [ 73 From Monitor] Respiratory 9 L 16 18 Rate Blood Pressure 121/83 121/83 121/83 O2 Sat by Pulse 100 98 95 Oximetry 08/12/20 08/12/20 08/12/20 08:45 09:00 09:15 Temperature Pulse Rate 77 75 75 Pulse Rate [ From Monitor] Respiratory 18 17 18 Rate Blood Pressure 121/83 110/70 110/70 O2 Sat by Pulse 97 85 88 Oximetry 08/12/20 08/12/20 08/12/20 09:22 09:23 09:31 Temperature Pulse Rate 71 72 77 Pulse Rate [ From Monitor] Respiratory 12 Rate Blood Pressure 110/70 110/70 110/70 O2 Sat by Pulse Oximetry 08/12/20 08/12/20 08/12/20 09:45 10:00 10:15 Temperature Pulse Rate 73 76 83 Pulse Rate [ From Monitor] Respiratory 15 16 18 Rate Blood Pressure 110/70 103/72 103/72 O2 Sat by Pulse 100 Oximetry 08/12/20 08/12/2008/12/21 10:31 10:45 11:01 Temperature Pulse Rate 81 81 76 Pulse Rate [ From Monitor] Respiratory 11 L 8 L 9 L Rate Blood Pressure 103/72 103/72 128/85 O2 Sat by Pulse 98 99 99 Oximetry 08/12/20 08/12/20 08/12/20 11:15 11:31 11:45 Temperature Pulse Rate 76 72 70 Pulse Rate [ From Monitor] Respiratory 11 L 13 14 Rate Blood Pressure 128/85 128/85 128/85 O2 Sat by Pulse 100 100 100 Oximetry 08/12/20 08/12/20 08/12/20 12:00 12:15 12:31 Temperature 97.7 F Pulse Rate 69 73 73 Pulse Rate [ 69 From Monitor] Respiratory 12 12 8 L Rate Blood Pressure 129/89 129/89 129/89 O2 Sat by Pulse 100 99 100 Oximetry 08/12/20 08/12/20 08/12/20 12:45 13:01 13:15 Temperature Pulse Rate 72 74 76 Pulse Rate [ From Monitor] Respiratory 14 12 10 L Rate Blood Pressure 129/89 123/87 123/87 O2 Sat by Pulse 99 100 100 Oximetry 08/12/20 08/12/20 08/12/20 13:31 13:45 14:00 Temperature Pulse Rate 77 73 71 Pulse Rate [ From Monitor] Respiratory 12 10 L 12 Rate Blood Pressure 123/87 123/87 116/69 O2 Sat by Pulse 100 100 88 Oximetry Constitutional: no acute distress Eyes: non-icteric ENT: oropharynx moist Neck: supple, no lymphadenopathy, no JVD Effort: normal Ascultation: Bilateral: clear Percussion: Bilateral: not dull Cardiovascular: regular rate and rhythm Gastrointestinal: normoactive bowel sounds, soft, non-tender, non-distended Integumentary: rash (back of neck) Extremities: no cyanosis, no edema, pulses normal, no ischemia or petechiae Neurologic: normal mental status, non-focal exam, pupils equal and round, motor strength normal and Psychiatric: mood appropriate, affect normal CBC and BMP: 08/12/20 07:46 08/13/20 04:22 ABG, PT/INR, D-dimer: PT/INR, D-dimer PT 13.4 Sec. (12.2-14.9) 08/11/20 08:50 INR 1.03 (0.87-1.13) 08/11/20 08:50 Abnormal lab findings: Abnormal Labs 08/11/20 08/11/20 08/11/20 08:50 08:50 11:10 WBC 12.4 H MCHC 35 H RDW 13.1 L Seg Neutrophils # 8.0 H Sodium 131 L Potassium 3.4 L Chloride 95.0 L Carbon Dioxide 17 L BUN 21 H Glucose 530 H* POC Glucose 460 H Hemoglobin A1c Total Creatine Kinase CK-MB (CK-2) CK-MB (CK-2) Rel Index Troponin T Triglycerides Cholesterol LDL Cholesterol Direct HDL Cholesterol 08/11/20 08/11/20 08/11/20 14:32 14:32 15:34 WBC MCHC RDW Seg Neutrophils # Sodium 135 L Potassium Chloride Carbon Dioxide 21 L BUN Glucose 376 H POC Glucose 376 H Hemoglobin A1c Total Creatine Kinase 1495 H CK-MB (CK-2) 176.8 H CK-MB (CK-2) Rel Index 11.8 H Troponin T 1.260 H* D Triglycerides 271 H Cholesterol 211 H LDL Cholesterol Direct 154 H HDL Cholesterol 36 L 08/11/20 08/12/20 08/12/20 21:49 07:35 07:46 WBC MCHC RDW Seg Neutrophils # Sodium Potassium Chloride Carbon Dioxide BUN Glucose 214 H POC Glucose 200 H 201 H Hemoglobin A1c Total Creatine Kinase CK-MB (CK-2) CK-MB (CK-2) Rel Index Troponin T 0.917 H* D Triglycerides Cholesterol LDL Cholesterol Direct HDL Cholesterol 08/12/20 08/12/20 07:46 11:25 WBC MCHC RDW Seg Neutrophils # Sodium Potassium Chloride Carbon Dioxide BUN Glucose POC Glucose 218 H Hemoglobin A1c 11.5 H Total Creatine Kinase CK-MB (CK-2) CK-MB (CK-2) Rel Index Troponin T Triglycerides Cholesterol LDL Cholesterol Direct HDL Cholesterol Chest x-ray: image reviewed (no acute process) Allied health notes reviewed: nursing
--- NOTE | 2020-08-12 14:38 | Progress Note ---
<HAWARHONDADanie - Last Filed: 08/12/20 14:35> Assessment and Plan Assessment and plan: STEMI s/p 1 SATINDER to LAD Acute diastolic/systolic CHF Hypertension Diabetes mellitus (uncontrolled, hemoglobin A1c 11.5) Hyperlipidemia Morbid obesity -Cardiology and CCM consulted, appreciate recommendations -S/p SATINDER to LAD x1 -08/28 echocardiogram shows anterior and septal wall moderate hypokinesis left ventricular ejection fraction severely decreased at 20 to 25%, trace AR, trace MR, mild TR, trace NH -Statin, dual antiplatelet therapy with Plavix and aspirin, beta-ezequiel, potassium sparing diuretic, ACEi -Trend BMP -OOB, Pt/OT consult DVT/GI prophylaxis: Pepcid, SCDs to bilateral extremities while in bed Disposition: Transfer to floor with telemetry History Interval history: This is a 49-year-old male with diabetes, obesity, hypertension who presented to the emergency department on 08/11 with midsternal nonradiating chest pain associated with nausea and mild shortness of breath via EMS. Recommend emergency department revealed acute anterior lateral IL on ECG and was taken emergently to Computational Theory Scientist. Left heart cath revealed 100% occluded LAD with deployment of a drug-eluting stent and chest pain markedly improved after cardiac cath. Patient was admitted to the hospital service for further work-up with consults to cardiology and CCM. 08/12: Overnight patient wore BiPAP however at the time of examination patient was on 4 L nasal cannula. Cardiology has started the patient on Aldactone and increase his lisinopril dose. Patient is on beta-ezequiel and dual antiplatelet therapy. Patient can be transferred to the floor. Hospitalist Physical - Constitutional Vitals: Temp Pulse Resp BP Pulse Ox 97.7 F 71 12 116/69 88 08/12/20 12:00 08/12/20 14:00 08/12/20 14:00 08/12/20 14:00 08/12/20 14:00 General appearance: Present: no acute distress, well-nourished - EENT Eyes: Present: PERRL, EOM intact ENT: hearing intact, clear oral mucosa - Neck Neck: Present: supple, normal ROM - Respiratory Respiratory effort: normal Respiratory: bilateral: diminished - Cardiovascular Rhythm: regular Heart Sounds: Present: S1 & S2. Absent: systolic murmur, diastolic murmur - Extremities Extremities: no ischemia, pulses intact, pulses symmetrical, No edema, normal temperature, normal color, Full ROM Peripheral Pulses: within normal limits - Abdominal General gastrointestinal: soft, non-tender, non-distended, normal bowel sounds - Integumentary Integumentary: Present: warm, dry - Psychiatric Psychiatric: appropriate mood/affect, cooperative - Neurologic Neurologic: CNII-XII intact, no focal deficits, moves all extremities - Allied Health Allied health notes reviewed: nursing HEART Score - HEART Score EKG: Significant ST-depression (er ekg consistent with septal stemi) Age: 45-65 Risk factors: > 3 risk factors or hx of atherosclerotic disease Troponin: Troponin T 0.917 ng/mL (0.00-0.029) H* D 08/12/20 07:46 Troponin: < normal limit - Critical Actions Critical Actions: >7 pts:50-65% risk of adverse cardiac event. Early invasive measures Results - Labs CBC & Chem 7: 08/12/20 07:46 08/12/20 07:46 Labs: Laboratory Last Values WBC 9.6 K/mm3 (4.5-11.0) 08/12/20 07:46 RBC 4.77 M/mm3 (3.65-5.03) 08/12/20 07:46 Hgb 13.9 gm/dl (11.8-15.2) 08/12/20 07:46 Hct 41.9 % (35.5-45.6) 08/12/20 07:46 MCV 88 fl (84-94) 08/12/20 07:46 MCH 29 pg (28-32) 08/12/20 07:46 MCHC 33 % (32-34) 08/12/20 07:46 RDW 13.5 % (13.2-15.2) 08/12/20 07:46 Plt Count 313 K/mm3 (140-440) 08/12/20 07:46 Lymph % (Auto) 32.8 % (13.4-35.0) 08/12/20 07:46 [place] % (Auto) 6.1 % (0.0-7.3) 08/12/20 07:46 Eos % (Auto) 1.0 % (0.0-4.3) 08/12/20 07:46 Baso % (Auto) 0.8 % (0.0-1.8) 08/12/20 07:46 Lymph # (Auto) 3.2 K/mm3 (1.2-5.4) 08/12/20 07:46 [place] # (Auto) 0.6 K/mm3 (0.0-0.8) 08/12/20 07:46 Eos # (Auto) 0.1 K/mm3 (0.0-0.4) 08/12/20 07:46 Baso # (Auto) 0.1 K/mm3 (0.0-0.1) 08/12/20 07:46 Seg Neutrophils % 59.3 % (40.0-70.0) 08/12/20 07:46 Seg Neutrophils # 5.7 K/mm3 (1.8-7.7) 08/12/20 07:46 PT 13.4 Sec. (12.2-14.9) 08/11/20 08:50 INR 1.03 (0.87-1.13) 08/11/20 08:50 APTT 25.8 Sec. (24.2-36.6) 08/11/20 08:50 Sodium 138 mmol/L (137-145) 08/12/20 07:46 Potassium 3.8 mmol/L (3.6-5.0) D 08/12/20 07:46 Chloride 102.7 mmol/L (98-107) 08/12/20 07:46 Carbon Dioxide 23 mmol/L (22-30) 08/12/20 07:46 Anion Gap 16 mmol/L 08/12/20 07:46 BUN 14 mg/dL (9-20) 08/12/20 07:46 Creatinine 1.1 mg/dL (0.8-1.3) 08/12/20 07:46 Estimated GFR > 60 ml/min 08/12/20 07:46 BUN/Creatinine Ratio 13 % 08/12/20 07:46 Glucose 214 mg/dL (75-100) H 08/12/20 07:46 POC Glucose 218 mg/dL (70-105) H 08/12/20 11:25 Hemoglobin A1c 11.5 % (4-6) H 08/12/20 07:46 Calcium 9.0 mg/dL (8.4-10.2) 08/12/20 07:46 Total Bilirubin 0.30 mg/dL (0.1-1.2) 08/11/20 08:50 AST 14 units/L (5-40) 08/11/20 08:50 ALT 18 units/L (7-56) 08/11/20 08:50 Alkaline Phosphatase 85 units/L (35-129) 08/11/20 08:50 Total Creatine Kinase 1495 units/L (55-170) H 08/11/20 14:32 CK-MB (CK-2) 176.8 ng/mL (0.0-4.0) H 08/11/20 14:32 CK-MB (CK-2) Rel Index 11.8 (0-4) H 08/11/20 14:32 Troponin T 0.917 ng/mL (0.00-0.029) H* D 08/12/20 07:46 Total Protein 8.0 g/dL (6.3-8.2) 08/11/20 08:50 Albumin 4.2 g/dL (3.9-5) 08/11/20 08:50 Albumin/Globulin Ratio 1.1 % 08/11/20 08:50 Triglycerides 271 mg/dL (2-149) H 08/11/20 14:32 Cholesterol 211 mg/dL (50-199) H 08/11/20 14:32 LDL Cholesterol Direct 154 mg/dL (50-130) H 08/11/20 14:32 HDL Cholesterol 36 mg/dL (40-59) L 08/11/20 14:32 Cholesterol/HDL Ratio 5.86 % 08/11/20 14:32 Blood Type B POSITIVE 08/11/20 14:32 Antibody Screen Negative 08/11/20 14:32 Hammond/IV: Voiding Method Urinal Active Medications - Current Medications Current Medications: Generic Name Dose Route Start Last Admin Trade Name Freq PRN Reason Stop Dose Admin Hydrocodone Bitart/Acetaminophen 1 each 08/11/20 10:00 08/11/20 18:37 Hydrocodone/Acetaminophen 5-325 Mg Tab PO 1 each Q6H PRN Administration Pain, Moderate (4-6) Al Hydrox/Mg Hydrox/Simethicone 30 ml 08/11/20 17:48 Alum-Mag Hydroxide-Simethicone 642-646-51mn/5ml Oral Liqd 30 Ml PO Q4H PRN Indigestion Aspirin 81 mg 08/12/20 10:00 08/12/20 09:21 Aspirin 81 Mg Tab Chew PO 81 mg QDAY ARLEEN Administration Atorvastatin Calcium 80 mg 08/11/20 22:00 08/11/20 21:53 Atorvastatin 40 Mg Tab PO 80 mg QHS ARLEEN Administration Clopidogrel Bisulfate 75 mg 08/12/20 10:00 08/12/20 09:23 Clopidogrel 75 Mg Tab PO 75 mg QDAY ARLEEN Administration Dextrose 50 ml 08/11/20 10:07 Dextrose 50% In Water (25gm) 50 Ml Syringe IV Q30MIN PRN Hypoglycemia Protocol Famotidine 20 mg 08/11/20 15:00 08/12/20 09:23 Famotidine 20 Mg Tab PO 20 mg QDAY ARLEEN Administration Sodium Chloride 1,000 mls @ 100 mls/hr 08/11/20 11:00 Nacl 0.9% 1000 Ml IV DIRECT ARLEEN Insulin Human Lispro 0 unit 08/11/20 11:30 08/12/20 11:50 Insulin Lispro 100 Unit/Ml SUB-Q 3 unit ACHS ARLEEN Administration Protocol Insulin Human NPH 22 unit 08/12/20 17:00 Insulin Nph, Human 100 Unit/1 Ml SUB-Q BIDDIAB ARLEEN Lisinopril 5 mg 08/12/20 09:00 08/12/20 10:00 Lisinopril 5 Mg Tab PO Not Given QDAY ARLEEN Metoprolol Tartrate 50 mg 08/11/20 10:00 08/12/20 09:22 Metoprolol Tartrate 50 Mg Tab PO 50 mg BID ARLEEN Administration Nitroglycerin 0.4 mg 08/11/20 08:22 08/11/20 17:41 Nitroglycerin 0.4 Mg Tab Subl SL 0.4 mg .Q5MIN PRN Administration Chest Pain Ondansetron HCl 4 mg 08/11/20 13:30 Ondansetron 4 Mg/2 Ml Inj IV Q4H PRN Nausea And Vomiting Spironolactone 25 mg 08/12/20 10:00 08/12/20 09:23 Spironolactone 25 Mg Tab PO 25 mg QDAY ARLEEN Administration <MICHAEL OZUNA R - Last Filed: 08/12/20 17:24> Assessment and Plan Assessment and plan: I saw and evaluated the patient. I agree with the findings and the plan of care as documented in the Nurse Practitioner's~note, Hospitalist Physical - Constitutional Vitals: Temp Pulse Resp BP Pulse Ox 98.4 F 76 9 L 126/82 100 08/12/20 16:00 08/12/20 17:00 08/12/20 17:00 08/12/20 17:00 08/12/20 17:00 HEART Score - HEART Score Troponin: Troponin T 0.917 ng/mL (0.00-0.029) H* D 08/12/20 07:46 Results - Labs CBC & Chem 7: 08/12/20 07:46 08/12/20 07:46 Labs: Laboratory Last Values WBC 9.6 K/mm3 (4.5-11.0) 08/12/20 07:46 RBC 4.77 M/mm3 (3.65-5.03) 08/12/20 07:46 Hgb 13.9 gm/dl (11.8-15.2) 08/12/20 07:46 Hct 41.9 % (35.5-45.6) 08/12/20 07:46 MCV 88 fl (84-94) 08/12/20 07:46 MCH 29 pg (28-32) 08/12/20 07:46 MCHC 33 % (32-34) 08/12/20 07:46 RDW 13.5 % (13.2-15.2) 08/12/20 07:46 Plt Count 313 K/mm3 (140-440) 08/12/20 07:46 Lymph % (Auto) 32.8 % (13.4-35.0) 08/12/20 07:46 [place] % (Auto) 6.1 % (0.0-7.3) 08/12/20 07:46 Eos % (Auto) 1.0 % (0.0-4.3) 08/12/20 07:46 Baso % (Auto) 0.8 % (0.0-1.8) 08/12/20 07:46 Lymph # (Auto) 3.2 K/mm3 (1.2-5.4) 08/12/20 07:46 [place] # (Auto) 0.6 K/mm3 (0.0-0.8) 08/12/20 07:46 Eos # (Auto) 0.1 K/mm3 (0.0-0.4) 08/12/20 07:46 Baso # (Auto) 0.1 K/mm3 (0.0-0.1) 08/12/20 07:46 Seg Neutrophils % 59.3 % (40.0-70.0) 08/12/20 07:46 Seg Neutrophils # 5.7 K/mm3 (1.8-7.7) 08/12/20 07:46 PT 13.4 Sec. (12.2-14.9) 08/11/20 08:50 INR 1.03 (0.87-1.13) 08/11/20 08:50 APTT 25.8 Sec. (24.2-36.6) 08/11/20 08:50 Sodium 138 mmol/L (137-145) 08/12/20 07:46 Potassium 3.8 mmol/L (3.6-5.0) D 08/12/20 07:46 Chloride 102.7 mmol/L (98-107) 08/12/20 07:46 Carbon Dioxide 23 mmol/L (22-30) 08/12/20 07:46 Anion Gap 16 mmol/L 08/12/20 07:46 BUN 14 mg/dL (9-20) 08/12/20 07:46 Creatinine 1.1 mg/dL (0.8-1.3) 08/12/20 07:46 Estimated GFR > 60 ml/min 08/12/20 07:46 BUN/Creatinine Ratio 13 % 08/12/20 07:46 Glucose 214 mg/dL (75-100) H 08/12/20 07:46 POC Glucose 218 mg/dL (70-105) H 08/12/20 11:25 Hemoglobin A1c 11.5 % (4-6) H 08/12/20 07:46 Calcium 9.0 mg/dL (8.4-10.2) 08/12/20 07:46 Total Bilirubin 0.30 mg/dL (0.1-1.2) 08/11/20 08:50 AST 14 units/L (5-40) 08/11/20 08:50 ALT 18 units/L (7-56) 08/11/20 08:50 Alkaline Phosphatase 85 units/L (35-129) 08/11/20 08:50 Total Creatine Kinase 1495 units/L (55-170) H 08/11/20 14:32 CK-MB (CK-2) 176.8 ng/mL (0.0-4.0) H 08/11/20 14:32 CK-MB (CK-2) Rel Index 11.8 (0-4) H 08/11/20 14:32 Troponin T 0.917 ng/mL (0.00-0.029) H* D 08/12/20 07:46 Total Protein 8.0 g/dL (6.3-8.2) 08/11/20 08:50 Albumin 4.2 g/dL (3.9-5) 08/11/20 08:50 Albumin/Globulin Ratio 1.1 % 08/11/20 08:50 Triglycerides 271 mg/dL (2-149) H 08/11/20 14:32 Cholesterol 211 mg/dL (50-199) H 08/11/20 14:32 LDL Cholesterol Direct 154 mg/dL (50-130) H 08/11/20 14:32 HDL Cholesterol 36 mg/dL (40-59) L 08/11/20 14:32 Cholesterol/HDL Ratio 5.86 % 08/11/20 14:32 Coronavirus (PCR) Negative (Negative) 08/12/20 10:45 Blood Type B POSITIVE 08/11/20 14:32 Antibody Screen Negative 08/11/20 14:32 Hammond/IV: Voiding Method Urinal Active Medications - Current Medications Current Medications: Generic Name Dose Route Start Last Admin Trade Name Freq PRN Reason Stop Dose Admin Hydrocodone Bitart/Acetaminophen 1 each 08/11/20 10:00 08/11/20 18:37 Hydrocodone/Acetaminophen 5-325 Mg Tab PO 1 each Q6H PRN Administration Pain, Moderate (4-6) Al Hydrox/Mg Hydrox/Simethicone 30 ml 08/11/20 17:48 Alum-Mag Hydroxide-Simethicone 022-795-57gm/5ml Oral Liqd 30 Ml PO Q4H PRN Indigestion Aspirin 81 mg 08/12/20 10:00 08/12/20 09:21 Aspirin 81 Mg Tab Chew PO 81 mg QDAY ARLEEN Administration Atorvastatin Calcium 80 mg 08/11/20 22:00 08/11/20 21:53 Atorvastatin 40 Mg Tab PO 80 mg QHS ARLEEN Administration Clopidogrel Bisulfate 75 mg 08/12/20 10:00 08/12/20 09:23 Clopidogrel 75 Mg Tab PO 75 mg QDAY ARLEEN Administration Dextrose 50 ml 08/11/20 10:07 Dextrose 50% In Water (25gm) 50 Ml Syringe IV Q30MIN PRN Hypoglycemia Protocol Famotidine 20 mg 08/11/20 15:00 08/12/20 09:23 Famotidine 20 Mg Tab PO 20 mg QDAY ARLEEN Administration Sodium Chloride 1,000 mls @ 100 mls/hr 08/11/20 11:00 Nacl 0.9% 1000 Ml IV DIRECT ARLEEN Insulin Human Lispro 0 unit 08/11/20 11:30 08/12/20 16:51 Insulin Lispro 100 Unit/Ml SUB-Q 6 unit ACHS ARLEEN Administration Protocol Insulin Human NPH 22 unit 08/12/20 17:00 08/12/20 16:50 Insulin Nph, Human 100 Unit/1 Ml SUB-Q 22 unit BIDDIAB ARLEEN Administration Lisinopril 5 mg 08/12/20 09:00 08/12/20 10:00 Lisinopril 5 Mg Tab PO Not Given QDAY [facility] Metoprolol Tartrate 50 mg 08/11/20 10:00 08/12/20 09:22 Metoprolol Tartrate 50 Mg Tab PO 50 mg BID ARLEEN Administration Nitroglycerin 0.4 mg 08/11/20 08:22 08/11/20 17:41 Nitroglycerin 0.4 Mg Tab Subl SL 0.4 mg .Q5MIN PRN Administration Chest Pain Ondansetron HCl 4 mg 08/11/20 13:30 Ondansetron 4 Mg/2 Ml Inj IV Q4H PRN Nausea And Vomiting Spironolactone 25 mg 08/12/20 10:00 08/12/20 09:23 Spironolactone 25 Mg Tab PO 25 mg QDAY ARLEEN Administration
--- NOTE | 2020-08-12 21:00 | Consultation ---
PULMONARY CRITICAL CARE CONSULT NOTE CONSULTING PHYSICIAN: Dr. Yasmani Ross. REASON FOR CONSULTATION: ST elevation PA. CHIEF COMPLAINT AND HISTORY OF PRESENT ILLNESS: The patient is a 49-year-old obese male with past medical history significant amongst other things for diabetes as well who came into the Emergency Room complaining of chest pain and currently he states the day prior he just was not feeling well. He then started having 1 or 2 episodes of nausea and vomiting. He thought nothing about it, went back to work; however, at work, he developed some midsternal, nonradiating chest symptoms with nausea, shortness of breath and vomiting. He felt really sick, even had an episode of diarrhea. He was brought into the Emergency Room. 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 Post-procedure, he was transferred into the Critical Care Unit where I stopped by to see him. When I stopped by to see him, he was resting in bed. He was started on antiplatelet therapy. His symptoms were feeling better. He denied nausea, denied vomiting at the time I saw him. When I asked about a history of tobacco use or abuse, he actually denied any history of tobacco use, whatsoever. This really is as much of the history of this presentation as I have. PAST MEDICAL HISTORY: Significant for diabetes, morbid obesity, hypertension. PAST SURGICAL HISTORY: Denies. MEDICATIONS: He was on at the time I stopped by to see him, according to the medication administration record included the following: He was on [place] 5/325 mg 1 tablet p.o. q. 6 hours p.r.n. moderate pain, aspirin 81 mg p.o. daily, Plavix 75 mg p.o. daily, Pepcid 20 mg p.o. daily, insulin via sliding scale, as well as NPH insulin 20 units subcutaneous b.i.d., lisinopril 2.5 mg p.o. daily, metoprolol 50 mg p.o. b.i.d., p.r.n. sublingual nitroglycerin, and Zofran 4 mg IV q. 4 hours p.r.n. nausea and vomiting. ALLERGIES: No known drug allergies. DIET: Obese gentleman. Denies acute weight loss or gain in the preceding few weeks to months. FAMILY AND SOCIAL HISTORY: Lives in the community. Denied alcohol, tobacco, or illicit drug use or abuse to me. FAMILY HISTORY: Otherwise, noncontributory. REVIEW OF SYSTEMS: No loss of consciousness. No new onset seizures. No new onset focal weakness. He denied gross hematochezia or melena. He did have some diarrhea. He denied any heat or cold intolerance. Denies polydipsia. Denies polyuria. He did have the chest pain. He had some shortness of breath. Complete 13-system review of systems obtained. Pertinent positives and/or negatives as in body of history above, otherwise noncontributory. PHYSICAL EXAMINATION: VITAL SIGNS: At presentation in the Emergency Room, review of his vital signs revealed that he was afebrile, temperature was 98.2 degrees Fahrenheit, pulse of 96, respiratory rate of 18, blood pressure 148/96, O2 sats were 99% at the time on 2 liters nasal cannula. GENERAL: He is a middle-aged obese male. Normocephalic, atraumatic, talking to me in uninterrupted sentences, but with mildly increased respiratory effort at rest. HEAD, EYES, EARS, NOSE AND THROAT: Anicteric. No conjunctival erythema. Oropharynx is moist. Mallampati #3 oropharynx. He has a large neck circumference. No gross jugular venous distention, no thyromegaly. NECK: Grossly, there were no palpable lymph nodes in the supraclavicular or submandibular lymph node chains. LUNGS: Auscultation of both lung flores unremarkable, really good bilateral air movement, no wheezing. HEART: Heart sounds 1 and 2 are heard at the time of my evaluation, regular rate and rhythm without overt rubs or murmurs. ABDOMEN: Soft, full, protuberant. Bowel sounds are positive. Nontender. No palpable hepatosplenomegaly. EXTREMITIES: Without overt digital clubbing, no cyanosis, no pedal edema. No joint swelling. Pedal pulses were 2+ bilaterally. NEUROLOGIC: Pupils were equal, round, about 4 mm, reactive to light. Extraocular muscle movements were intact. He moves all 4 extremities spontaneously. SKIN: Normal turgor in the areas examined without overt cellulitis or rash. He did have a patch to the back of his neck at the base of his neck that he states was due to keloid, it was some hyperpigmented and rough skin. Please see the wound care nurse's notes for full description of his skin. PSYCHIATRIC: His mood was normal and his affect was appropriate. He had intact judgment and insight. LABORATORY DATA: From my review are as follows: Admission white cell count 12,400, hemoglobin 13.9, hematocrit 39.4, platelet count was 300. No manual differential. INR within normal limits. Serum sodium was 131, potassium 3.4, chloride 95, bicarbonate 17, BUN 21, creatinine 1.3, glucose was 530. Liver function test within normal limits. Initial troponin was nondetectable. It has peaked at 1.26, so far. I do not have any microbiology studies for review. Chest x-ray was done. I have reviewed the chest x-ray as well as the radiologist's interpretation I do agree with it, borderline at worst cardiomegaly without overt infiltrate, really no acute process. A 2D echocardiogram has been done, the results are pending. ASSESSMENT: 1. Acute ST elevation myocardial infarction. 2. Acute hypoxemic respiratory failure. 3. Morbid obesity. 4. Metabolic acidosis at presentation. 5. Leukocytosis at presentation. 6. Hypokalemia. 7. Hyponatremia. 8. History of hypertension. PLAN: He will be continued on antiplatelet therapy. Secondary prevention measures will be continued including blood pressure control. Weight loss has been strongly counseled. The lipid profile will be ordered and addressed as necessary. Oxygen will be weaned to keep sats greater than or equal to about 90%. Aspiration precautions will be maintained. Glycemic control will be for initial blood glucose of 140-180 mg/dL while critically ill. I will defer to the swine genetics researcher in terms of duration of IV heparin. Continued tobacco abstinence has been strongly counseled. He will benefit from a pulmonary clinic evaluation for obstructive sleep apnea. Potassium has been replaced. It is up to 4.8. Metabolic acidosis is improving. Serum bicarbonate has gone from 17 to 21. Inputs and outputs will be monitored. He has been started on GI prophylaxis. He will be continued on DVT prophylaxis. Flu and pneumonia vaccination will be addressed per protocol. Thank you very much for the consult. We will follow along and make further recommendations as picture progresses/becomes clearer. He is critically ill on life-sustaining interventions and at high risk of from cardiopulmonary system decompensation. At this time, I spent about 35-40 minutes of critical care time without overlap excluding any procedural time that may be necessary. JOB# [id number] GLORIA/MONSE CASH
[2020-08-13 05:35] LABS: Alanine Aminotransferase 23 units/L (7-56); Albumin 3.7 g/dL (3.9-5); BUN/Creatinine Ratio 13; Blood Urea Nitrogen 16 mg/dL (9-20); Calcium 8.3 mg/dL (8.4-10.2); Hemolysis Index 23
[2020-08-13] MEDS: METOPROLOL TARTRATE 50 MG TAB PO SCH (09:44)
[2020-08-13] MEDS: SPIRONOLACTONE 25 MG TAB PO SCH (09:44)
[2020-08-13] MEDS: INSULIN LISPRO 100 UNIT/ML SUB-Q SCH ×2 (09:45→11:45)
[2020-08-13] MEDS: INSULIN NPH, HUMAN 100 UNIT/1 ML SUB-Q SCH (09:46)
[2020-08-13] MEDS: ASPIRIN 81 MG TAB CHEW PO SCH (09:48)
[2020-08-13] MEDS: FAMOTIDINE 20 MG TAB PO SCH (09:49)
[2020-08-13] MEDS: CLOPIDOGREL 75 MG TAB PO SCH (09:49)
[2020-08-13] MEDS: LISINOPRIL 5 MG TAB PO SCH (09:50)
[2020-08-13] MEDS ORDERED: METOPROLOL TARTRATE 50 MG TAB PO SCH (10:00)
[2020-08-13] MEDS ORDERED: LISINOPRIL 5 MG TAB PO SCH (10:00)
--- NOTE | 2020-08-13 11:25 | Electrocardiograph Report ---
[facility] Test Date: 2020-08-11 Test Time: 08:16:45 Pat Name: AMA REDD Department: Room: A489 Gender: M Respiratory Coordinator: MAMTA : 1970 Requested By: HIREN FERRARA Order Number: [id number] Reading MD: Vj Sanchez Measurements Intervals [place] Rate: 98 P: 80 MO: 210 QRS: -12 QRSD: 93 T: 18 QT: 366 QTc: 469 Interpretive Statements Sinus rhythm Prolonged MO interval Extensive anterior infarct, acute ST elevation, acute anterior wall myocardial infarction No previous ECG available for comparison Electronically Signed On 08-13-2020 11:24:56 EDT by Vj Sanchez
--- NOTE | 2020-08-13 11:29 | Electrocardiograph Report ---
[facility] Test Date: 2020-08-11 Test Time: 11:04:29 Pat Name: AMA REDD Department: Room: A489 Gender: M Assistant Foreman: DEJA : 1970 Requested By: LALITA CALVILLO Order Number: [id number] Reading MD: Vj Sanchez Measurements Intervals [place] Rate: 91 P: 49 CA: 204 QRS: -16 QRSD: 92 T: 28 QT: 357 QTc: 439 Interpretive Statements Sinus rhythm Borderline prolonged CA interval Anteroseptal infarct, old Compared to ECG 08/11/2020 08:16:45 Electronically Signed On 08-13-2020 11:28:42 EDT by Vj Sanchez
--- NOTE | 2020-08-13 11:32 | Electrocardiograph Report ---
[facility] Test Date: 2020-08-11 Test Time: 17:54:09 Pat Name: AMA REDD Department: Room: A489 Gender: M Scroll Assembler: SELVIN : 1970 Requested By: LALITA CALVILLO Order Number: [id number] Reading MD: Vj Sanchez Measurements Intervals [place] Rate: 84 P: 34 ID: [id number] QRS: -29 QRSD: 89 T: 13 QT: 383 QTc: 453 Interpretive Statements Sinus rhythm Probable left atrial enlargement Inferior infarct, old Anteroseptal infarct, age indeterminate Compared to ECG 08/11/2020 11:04:29 No significant changes Electronically Signed On 08-13-2020 11:32:21 EDT by Vj Sanchez
[2020-08-13 11:45] VITALS: BP 103/58
--- NOTE | 2020-08-13 12:45 | Discharge Summary ---
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 Patient was brought to the ER by ambulance and showed acute anterior lateral ME on EKG. Code STEMI initiated and patient was taken emergently to Solution [facility] with Successful PCI of the 100% occluded proximal LAD with a drug-eluting 5.0 x 22 mm stent. Chest pain has markedly improved following cardiac cath. Serum chemistry was also significant for blood glucose greater than 500 on admission. patient was initiated on insulin and Patient was admitted to intensive care unit for further evaluation and management. Daily clinical course; 08/12: Overnight patient wore BiPAP however at the time of examination patient was on 4 L nasal cannula. Cardiology has started the patient on Aldactone and increase his lisinopril dose. Patient is on beta-ezequiel and dual antiplatelet therapy. Patient can be transferred to the floor. 08/13: patient resting on RA. Insulin dose further adjusted. Recommended to start metformin from Monday as he had cardiac cath with contrast. Patient vitally stable, did not qualify for home O2. He will be discharged on DAP: ASA 81mg daily, and Plavix 75mg daily. Continue current cardiac regimen: High dose statin: Atorvastatin 80mg, Lisinopril 2.5mg, Metoprolol 25mg BID. Echo reviewed (07/2020): Ef 20% anterior wall and septal hypokensis trace Discharge plan and management was thoroughly discussed with the patient and he verbalized understanding. Patient was counseled to be compliant with the outpatient follow-up and medication. Patient was then discharged home in stable condition. Disposition: DC-01 TO HOME OR SELFCARE Final Discharge Diagnosis (Prints w/discharge instructions): STEMI s/p 1 SATINDER to LAD. Acute systolic CHFrEF 20-25%. Hypertension. Diabetes mellitus (uncontrolled, hemoglobin A1c 11.5). Hyperlipidemia. Morbid obesity. FRANKIE, POA, resolved now. Likely prerenal. Acute hypoxic respiratory failure, likely from new onset CHF, resolved Time spent for discharge: 34 minutes Core Measure Documentation - Palliative Care Palliative Care/ Comfort Measures: Not Applicable - Core Measures Any of the following diagnoses?: heart failure - Heart Failure Discharge Requirements LUCAS/ARB for LVSD if EF <40%: Yes Beta ezequiel at discharge: Yes Exam - Physical Exam Narrative exam: GENERAL: well-developed and obese -Japanese male lying on bed appeared to be in no discomfort. HEENT: Normocephalic. Atraumatic. No conjunctival congestion or icterus. Patient has moist mucous membranes. NECK: Supple. Trachea midline. CHEST/LUNGS: Clear to auscultated bilaterally, breathing nonlabored. No wheezes crackles or rhonchi. HEART/CARDIOVASCULAR: Regular in rate and rhythm. S1 and S2 positive. ABDOMEN: Abdomen is soft, nontender. Patient has normal bowel sounds. SKIN: There is no rash. Warm and dry. NEURO: No focal motor deficit. Follows command. MUSCULOSKELETAL: No joint effusion or tenderness. EXTRIMITY: No edema, no cyanosis or clubbing. PSYCH: Cooperative. - Constitutional Vitals: Temp Pulse Resp BP Pulse Ox 98.6 F 80 20 103/58 98 08/13/20 08:33 08/13/20 11:45 08/13/20 08:33 08/13/20 11:45 08/13/20 08:33 Plan Activity: advance as tolerated Weight Bearing Status: Non-Weight Bearing Diet: low fat, low salt, diabetic Special Instructions: restrict fluid intake to (1.2L daily), record daily weights, record daily BP diary, record blood sugar diary, home health RN Additional Instructions: Please continue your cardiac medication. 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 Start metformin from Monday. You have prescribed with insulin 70/30 22 unit twice a day before breakfast and before dinner. Please check your blood glucose before every meal and at bedtime. Please use sliding scale of insulin to further improve your glycemic control according to protocol as follows. BG 150-199: Apply 2 units. BG 200- 249: apply 4 units. BG 250 -299: apply 6 units. BG >300 apply 8 units, >350 x2 call PCP. Please maintain a blood glucose diary. Follow up with: PRIMARY CARE, [Primary Care Provider] - 7 Days Prescriptions: AtorvaSTATin [Lipitor] 80 mg PO QHS #30 tablet Spironolactone [Aldactone] 25 mg PO QDAY #30 tablet metFORMIN [Glucophage] 500 mg PO BID #60 Aspirin EC [Halfprin EC] 81 mg PO QDAY #30 tablet. Lispro Insulin [HumaLOG] 0 unit SUB-Q ACHS 30 Days Metoprolol [Lopressor TAB] 25 mg PO BID #60 tablet Nitroglycerin [Nitrostat] 0.4 mg SL .Q5MIN PRN #30 tablet PRN Reason: Chest Pain Insulin NPH, Human [NovoLIN N] 22 unit SUB-Q BIDDIAB 30 Days Clopidogrel [Plavix] 75 mg PO QDAY #30 tablet lisinopriL [Zestril TAB] 2.5 mg PO QDAY #30 tablet Other Discharge Orders: Glucometer (Amb) Location: None Selected Glucometer supplies[Amb] Location: None Selected
--- NOTE | 2020-08-13 12:55 | Progress Note ---
Assessment and Plan Tele reviewed: SR 74. No events overnight. s/p PCI with SATINDER. He will be discharged on DAP: ASA 81mg daily, and Plavix 75mg daily. Importance of compliance reviewed. Continue current cardiac regimen: High dose statin: Atorvastatin 80mg, Lisinopril 2.5mg, Metoprolol 25mg BID. Echo reviewed (07/2020): ef 20% anterior wall and septal hypokensis trace A1C 11.5 noted. Pt advised to f/u with primary care. Currently stable cardiac status. Pt may discharge from cardiology standpoint. Recommend f/u with [facility] within 1 week of discharge. This pt was seen in conjunction with Dr Zavaleta who agrees with this assessment and plan of care. - Patient Problems (1) Acute diastolic (congestive) heart failure Current Visit: Yes Status: Acute (2) Hypertension Current Visit: Yes Status: Chronic Qualifiers: Hypertension type: essential hypertension Qualified Code(s): I10 - Essential (primary) hypertension (3) Diabetes mellitus Current Visit: Yes Status: Chronic Qualifiers: Diabetes mellitus type: type 2 Diabetes mellitus complication status: with circulatory complication Diabetes mellitus complication detail: with other circulatory complications (4) Hyperlipidemia Current Visit: Yes Status: Chronic Qualifiers: Hyperlipidemia type: moderate mixed hyperlipidemia not requiring statin therapy Qualified Code(s): E78.2 - Mixed hyperlipidemia (5) Morbid obesity with BMI of 40.0-44.9, adult Current Visit: Yes Status: Chronic (6) ST elevation (STEMI) myocardial infarction Current Visit: Yes Status: Acute Qualifiers: Involved coronary artery: LAD coronary artery Qualified Code(s): I21.02 - ST elevation (STEMI) myocardial infarction involving left anterior descending coronary artery (7) Acute systolic (congestive) heart failure Current Visit: Yes Status: Acute (8) Coranary Artery Disease Current Visit: Yes Status: Chronic (9) Stented Coronary Artery Current Visit: Yes Status: Chronic (10) Cardiomyopathy Current Visit: Yes Status: Chronic Subjective Date of service: 08/13/20 Principal diagnosis: acute mi Interval history: Pt resting comfortably in bed. No CP or SOB overnight. Tele reviewed: SR 74. No events. Objective Last Vital Signs Temp 98.0 F 08/13/20 11:25 Pulse 80 08/13/20 11:45 Resp 18 08/13/20 11:25 BP 103/58 08/13/20 11:45 Pulse Ox 98 08/13/20 11:25 - Physical Examination General: No Apparent Distress HEENT: Positive: PERRL, Mucus Membranes Moist Neck: Positive: neck supple, trachea midline Cardiac: Positive: Reg Rate and Rhythm, S1/S2 Lungs: Positive: clear to auscultation, Normal Breath Sounds Neuro: Positive: Grossly Intact Abdomen: Positive: Soft, Active Bowel Sounds. Negative: Tender, Distended Skin: Positive: Clear Incision: Cardiac Cath Site (No hematoma) Musculoskeletal: No Pain, Normal Range of Motion Extremities: Present: normal. Absent: edema - Labs and Meds Cardiac Enzymes 08/13/20 Range/Units 04:22 AST 42 H (5-40) units/L Comprehensive Metabolic Panel 08/13/20 Range/Units 04:22 Sodium 137 (137-145) mmol/L Carbon Dioxide 23 (22-30) mmol/L BUN 16 (9-20) mg/dL Creatinine 1.2 (0.8-1.3) mg/dL Glucose 158 H (75-100) mg/dL Calcium 8.3 L (8.4-10.2) mg/dL AST 42 H (5-40) units/L ALT 23 (7-56) units/L Alkaline Phosphatase 76 (35-129) units/L Total Protein 7.0 (6.3-8.2) g/dL Albumin 3.7 L (3.9-5) g/dL - Imaging and Cardiology Echo: report reviewed (ef 20% anterior wall and septal hypokensis trace ) Cardiac cath: report reviewed (08/11/20 Left heart cath revealed left main patent LAD proximal 100% circumflex dominant patent obtuse marginal 1 2 patent L PDA patent large patent RCA small nondominant patent mild dysfunction. Successful PCI of the proximal LAD with a drug-eluting 5.0 x 22 mm stent.) - Telemetry EKG Rhythm: Sinus Rhythm - Allied health notes Allied health notes reviewed: nursing
--- NOTE | 2020-08-13 16:04 | Progress Note ---
Assessment and Plan Acute ST elevation myocardial infarction. Acute hypoxemic respiratory failure. Morbid obesity. Metabolic acidosis at presentation. Leukocytosis at presentation. Hypokalemia. Hyponatremia. History of hypertension. - continue supplemental oxygen as needed to keep O2 sat's > 90% - prn bronchodilators with pulmonary hygiene per RT - continue anti-platelet therapy' - continue lipid therapy with atorvastatin - weight loss counseled - outpatient sleep clinic evaluation appropriate re: JONNA - PT/OT as tolerated - mobility protocols for pressure ulcer prophylaxis - continue accuchecks with glycemic control per SSI for target BG < 180 mg/dl - GI & VTE prophylaxis - Flu & pneumovax addressed per protocol - continue other care per attending / other consultants - discharge planning ongoing concurrently ... re-evaluate in am & prn Subjective Date of service: 08/13/20 Principal diagnosis: STEMI; Acute hypoxemic respiratory failure; Morbid obesity Interval history: Patient is seen today for: Acute ST elevation myocardial infarction; Acute hypoxemic respiratory failure; Morbid obesity; Metabolic acidosis; Leukocytosis Seen and examined at bedside; 24hour events reviewed; nursing and respiratory care staff consulted; no adverse overnight events reported to me; resting peacefully in bed; seen earlier; continues to improve; denies chest pains or palpitations Objective Vital Signs - 12hr 08/13/20 08/13/20 08/13/20 04:15 08:33 09:44 Temperature 98.0 F 98.6 F Pulse Rate 70 80 80 Respiratory 18 20 Rate Blood Pressure 98/48 93/61 93/61 O2 Sat by Pulse 100 98 Oximetry 08/13/20 08/13/20 08/13/20 09:50 11:18 11:25 Temperature 97.9 F 98.0 F Pulse Rate 80 80 83 Respiratory 20 18 Rate Blood Pressure 93/61 103/68 115/78 O2 Sat by Pulse 98 98 Oximetry 08/13/20 08/13/20 11:43 11:45 Temperature Pulse Rate 80 80 Respiratory Rate Blood Pressure 103/58 103/58 O2 Sat by Pulse Oximetry Constitutional: no acute distress Eyes: non-icteric ENT: oropharynx moist Neck: supple, no lymphadenopathy, no JVD Effort: normal Ascultation: Bilateral: clear Percussion: Bilateral: not dull Cardiovascular: regular rate and rhythm Gastrointestinal: normoactive bowel sounds, soft, non-tender, non-distended Integumentary: rash (back of neck) Extremities: no cyanosis, no edema, pulses normal, no ischemia or petechiae Neurologic: normal mental status, non-focal exam, pupils equal and round, motor strength normal and Psychiatric: mood appropriate, affect normal CBC and BMP: 08/12/20 07:46 08/13/20 04:22 ABG, PT/INR, D-dimer: PT/INR, D-dimer PT 13.4 Sec. (12.2-14.9) 08/11/20 08:50 INR 1.03 (0.87-1.13) 08/11/20 08:50 Abnormal lab findings: Abnormal Labs 08/11/20 08/11/20 08/11/20 08:50 08:50 11:10 WBC 12.4 H MCHC 35 H RDW 13.1 L Seg Neutrophils # 8.0 H Sodium 131 L Potassium 3.4 L Chloride 95.0 L Carbon Dioxide 17 L BUN 21 H Glucose 530 H* POC Glucose 460 H Hemoglobin A1c Calcium AST Total Creatine Kinase CK-MB (CK-2) CK-MB (CK-2) Rel Index Troponin T Albumin Triglycerides Cholesterol LDL Cholesterol Direct HDL Cholesterol 08/11/20 08/11/20 08/11/20 14:32 14:32 15:34 WBC MCHC RDW Seg Neutrophils # Sodium 135 L Potassium Chloride Carbon Dioxide 21 L BUN Glucose 376 H POC Glucose 376 H Hemoglobin A1c Calcium AST Total Creatine Kinase 1495 H CK-MB (CK-2) 176.8 H CK-MB (CK-2) Rel Index 11.8 H Troponin T 1.260 H* D Albumin Triglycerides 271 H Cholesterol 211 H LDL Cholesterol Direct 154 H HDL Cholesterol 36 L 08/11/20 08/12/20 08/12/20 21:49 07:35 07:46 WBC MCHC RDW Seg Neutrophils # Sodium Potassium Chloride Carbon Dioxide BUN Glucose 214 H POC Glucose 200 H 201 H Hemoglobin A1c Calcium AST Total Creatine Kinase CK-MB (CK-2) CK-MB (CK-2) Rel Index Troponin T 0.917 H* D Albumin Triglycerides Cholesterol LDL Cholesterol Direct HDL Cholesterol 08/12/20 08/12/20 08/12/20 07:46 11:25 15:05 WBC MCHC RDW Seg Neutrophils # Sodium Potassium Chloride Carbon Dioxide BUN Glucose POC Glucose 218 H 318 H Hemoglobin A1c 11.5 H Calcium AST Total Creatine Kinase CK-MB (CK-2) CK-MB (CK-2) Rel Index Troponin T Albumin Triglycerides Cholesterol LDL Cholesterol Direct HDL Cholesterol 08/12/20 08/13/20 08/13/20 22:18 04:22 08:30 WBC MCHC RDW Seg Neutrophils # Sodium Potassium Chloride Carbon Dioxide BUN Glucose 158 H POC Glucose 210 H 182 H Hemoglobin A1c Calcium 8.3 L AST 42 H Total Creatine Kinase CK-MB (CK-2) CK-MB (CK-2) Rel Index Troponin T Albumin 3.7 L Triglycerides Cholesterol LDL Cholesterol Direct HDL Cholesterol 08/13/20 11:20 WBC MCHC RDW Seg Neutrophils # Sodium Potassium Chloride Carbon Dioxide BUN Glucose POC Glucose 273 H Hemoglobin A1c Calcium AST Total Creatine Kinase CK-MB (CK-2) CK-MB (CK-2) Rel Index Troponin T Albumin Triglycerides Cholesterol LDL Cholesterol Direct HDL Cholesterol Allied health notes reviewed: nursing
== END 2020-08-13 15:35 | disposition home health service (06) | DRG 246 ==
LOC: ED 08:13 → CC1 08:27 → 4A 08-12 18:51
PROVIDERS: ADMIT Internal Medicine; ATTEND Internal Medicine
PROC: 4A023N7 Measurement of Cardiac Sampling and Pressure, Left Heart, Percutaneous Approach (ICD-10-PCS; principal; 2020-08-11)
PROC: 027034Z Dilation of Coronary Artery, One Artery with Drug-eluting Intraluminal Device, Percutaneous Approach (ICD-10-PCS; 2020-08-11)
PROC: B2111ZZ Fluoroscopy of Multiple Coronary Arteries using Low Osmolar Contrast (ICD-10-PCS; 2020-08-11)
PROC: B2151ZZ Fluoroscopy of Left Heart using Low Osmolar Contrast (ICD-10-PCS; 2020-08-11)
PROC: B240ZZ3 Ultrasonography of Single Coronary Artery, Intravascular (ICD-10-PCS; 2020-08-11)
DX: I21.02 ST elevation (STEMI) myocardial infarction involving left anterior descending coronary artery (principal); J96.01 Acute respiratory failure with hypoxia; I50.41 Acute combined systolic (congestive) and diastolic (congestive) heart failure; E87.2 Acidosis; R65.10 Systemic inflammatory response syndrome (SIRS) of non-infectious origin without acute organ dysfunction; E87.1 Hypo-osmolality and hyponatremia; N17.9 Acute kidney failure, unspecified; E87.6 Hypokalemia; I11.0 Hypertensive heart disease with heart failure; E66.01 Morbid (severe) obesity due to excess calories; D72.829 Elevated white blood cell count, unspecified; E78.2 Mixed hyperlipidemia; Z20.822 Contact with and (suspected) exposure to COVID-19; E11.65 Type 2 diabetes mellitus with hyperglycemia; Z68.34 Body mass index [BMI] 34.0-34.9, adult; Z79.899 Other long term (current) drug therapy
CPT/HCPCS: 36415; 71045; 80048; 80053; 80061; 82550; 82553; 82962; 83036; 84484; 85025; 85610; 85730; 86850; 86900; 86901; 92941; 92978; 93005; 93306; 93458; 96365; 96375; G0378; A9270-GY; C1725; C1753; C1769; C1874; C1887; C1894; C9606; J0171; J0461; J1644; J1815; J2001; J2250; J2270; J2370; J3010; J7030; J7040; Q9967; U0003